=== PATIENT | female | born 1995 | race African-American/Black ===

== ENCOUNTER 2021-12-06 12:29 | Outpatient (CLI) | payer OTHER, MEDICAID, SELFPAY ==
--- NOTE | ~2021-12-06 | US_ITS ---
EXAMINATION: US OB <= 14 weeks fetus DATE: 12/06/2021 13:26 INDICATION: Encounter for other specified screening. Uncertain dates. TECHNIQUE: Real-time transabdominal pelvic ultrasound was performed. COMPARISON: None. FINDINGS: The uterus measures 14.6 x 6.3 x 8.2 cm. There is an intrauterine gestational sac. A yolk sac is iden tified. The crown rump length measures 5.4 cm, which correlates with an estimated gestational age of 12 weeks and 0 day(s) (+/-) 1 week(s) and 1 day(s). heart motion is identified measuring 154 beats per minute (bpm) by M-mode Doppler. The right ovary measures 4.7 x 1.1 x 1.6 cm. The left ovary measures 3.4 x 1.2 cm. There is no free fluid in the pelvis. IMPRESSION: 1. Single living intrauterine gestation with estimated date of delivery of 06/20/2022. Reviewed, dictated and finalized at location A. ETING RESEARCH INTERN IMPRESSION: 1. Single living intrauterine gestation with estimated date of delivery of 05/29.
== END 2021-12-06 12:30 | disposition home or self-care (01) ==
LOC: ANHIMG 12:32
PROVIDERS: Visit Provider Obstetrics & Gynecology
DX: Z36.89 Encounter for other specified antenatal screening (principal)
CPT/HCPCS: 76801

== ENCOUNTER 2022-04-21 08:58 | Outpatient (CLI) | payer OTHER, SELFPAY ==
[2022-04-21 10:19] LABS: Basophils Percent Auto 0.2 % (0.2-1.2); Eosinophils Absolute Auto 0.1 K/mm3 (0-0.3); Eosinophils Percent Auto 1.1 % (0-4.4); Hematocrit 29.8 % (37.0-47.0); Hemoglobin 9.6 g/dL (12.0-15.0); Immature Granulocyte Absolute 0.01 K/mm3 (0.00-0.031); Immature Granulocyte Percent A 0.2 % (0-0.5); Immature Platelet Fraction Pct 10.1 % (0.9-11.2); Lymphocytes Absolute Auto 1.34 K/mm3 (0.9-3.2); Lymphocytes Percent Auto 30.7 % (18.3-44.2); Mean Corpuscular HGB Conc 32.2 g/dl (32-36); Mean Corpuscular Hemoglobin 27.7 pg (26-34); Mean Corpuscular Volume 86.1 fl (80-100); Mean Platelet Volume 11.3 fl (7.4-10.4); Monocytes Absolute Auto 0.4 K/mm3 (0.1-0.6); Monocytes Percent Auto 9.4 % (2.6-8.5); Neutrophils Absolute Auto 2.6 K/mm3 (1.3-6.7); Neutrophils Percent Auto 58.4 % (45.5-73.1); Platelet Count Result 142 k/mm3 (150-375); Red Blood Count 3.46 M/mm3 (4.2-5.4); White Blood Count 4.4 K/mm3 (4.5-10.0)
[2022-04-21 10:28] LABS: Glucose 1 Hour PP 50gm Dose 98 mg/dL
== END 2022-04-21 08:59 | disposition home or self-care (01) ==
LOC: ANHLAB 09:00
PROVIDERS: Visit Provider Obstetrics & Gynecology
DX: Z34.90 Encounter for supervision of normal pregnancy, unspecified, unspecified trimester (principal)
CPT/HCPCS: 36415; 82947; 85025; 85055

== ENCOUNTER 2022-05-16 14:30 | Outpatient (CLI) | payer OTHER, SELFPAY ==
[2022-05-16 14:58] LABS: Basophils Percent Auto 0.2 % (0.2-1.2); Eosinophils Percent Auto 0.5 % (0-4.4); Hematocrit 31.2 % (37.0-47.0); Hemoglobin 10.1 g/dL (12.0-15.0); Immature Granulocyte Absolute 0.01 K/mm3 (0.00-0.031); Immature Granulocyte Percent A 0.2 % (0-0.5); Lymphocytes Absolute Auto 1.46 K/mm3 (0.9-3.2); Lymphocytes Percent Auto 35.3 % (18.3-44.2); Mean Corpuscular HGB Conc 32.4 g/dl (32-36); Mean Corpuscular Hemoglobin 27.7 pg (26-34); Mean Corpuscular Volume 85.5 fl (80-100); Mean Platelet Volume 12.1 fl (7.4-10.4); Monocytes Absolute Auto 0.3 K/mm3 (0.1-0.6); Neutrophils Absolute Auto 2.3 K/mm3 (1.3-6.7); Neutrophils Percent Auto 55.8 % (45.5-73.1); Platelet Count Result 120 k/mm3 (150-375); Red Blood Count 3.65 M/mm3 (4.2-5.4); Red Cell Distribution Width 13.2 % (11.5-14.5); White Blood Count 4.1 K/mm3 (4.5-10.0)
[2022-05-16 15:50] LABS: HIV 1/2 Ab P24 Ag Result Negative (Negative)
[2022-05-17 07:53] LABS: Rapid Plasma Reagin Non-Reactive (NonReactive)
== END 2022-05-16 14:31 | disposition home or self-care (01) ==
LOC: ANHLAB 14:32
PROVIDERS: Visit Provider Obstetrics & Gynecology
DX: Z34.91 Encounter for supervision of normal pregnancy, unspecified, first trimester (principal); Z3A.12 12 weeks gestation of pregnancy
CPT/HCPCS: 36415; 85025; 86592; 86703; 86850; G0432

== ENCOUNTER 2022-06-19 04:13 | Inpatient (IN) | payer OTHER, SELFPAY ==
[2022-06-19] VITALS (13 sets, daily range): BP systolic 120–134; BP diastolic 69–81; PULSE 60–77; RESP 16–20; TEMP 36.4–36.9; O2SAT 98–100; BMI 27.1
[2022-06-19 05:40] LABS: Basophils Percent Auto 0.2 % (0.2-1.2); Eosinophils Percent Auto 0.9 % (0-4.4); Hematocrit 35.9 % (37.0-47.0); Hemoglobin 11.9 g/dL (12.0-15.0); Immature Granulocyte Absolute 0.01 K/mm3 (0.00-0.031); Immature Granulocyte Percent A 0.2 % (0-0.5); Lymphocytes Absolute Auto 1.87 K/mm3 (0.9-3.2); Lymphocytes Percent Auto 40.4 % (18.3-44.2); Mean Corpuscular HGB Conc 33.1 g/dl (32-36); Mean Corpuscular Hemoglobin 28.3 pg (26-34); Mean Corpuscular Volume 85.5 fl (80-100); Mean Platelet Volume 12.7 fl (7.4-10.4); Monocytes Absolute Auto 0.5 K/mm3 (0.1-0.6); Monocytes Percent Auto 10.2 % (2.6-8.5); Neutrophils Absolute Auto 2.2 K/mm3 (1.3-6.7); Neutrophils Percent Auto 48.1 % (45.5-73.1); Platelet Count Result 107 k/mm3 (150-375); Red Cell Distribution Width 13.2 % (11.5-14.5); White Blood Count 4.6 K/mm3 (4.5-10.0)
--- NOTE | 2022-06-19 06:05 | P.PCNOB_ITS ---
OB - Delivery Note Procedure Delivery date: 06/19/22 Procedure: Spontaneous vaginal delivery Delivery monitor: External FHT Route of delivery: Laceration Description: None Specimen: No Quantitative Blood Loss (ml): 150 Anesthesia type: None Disposition: Floor Narrative: Patient admitted to Labor and delivery in active labor. IV access was obtained. She had spontaneous rupture of membranes with thick meconium noted. She soon progressed to complete. Peds available. She pushed approximately 3 times and delivered a female . Over an intact perineum. There was a loose nuchal cord manually reduced. nose and mouth was suctioned at the perineum. was vigorously crying upon delivery. She cord was doubly clamped and cut was placed on maternal abdomen and then handed to nursery staff and slip presser in attendance. Cord blood was obtained and cord gases. the placenta delivered spontaneously and intact. There were no lacerations. Patient tolerated procedure well. Bernice Baby Date of : 06/19/22 Time of : 05:09 Weeks of gestation at delivery: 40 Infant gender: Female Weight (pounds): 6 Weight (ounces): 8 presentation: vertex position: Right Occiput Anterior Placenta delivery description: Spontaneous Cord Vessel Description: 3 Vessels score one minute: 8 score five minutes: 9
--- NOTE | 2022-06-19 06:05 | PM.IMHP ---
H&P: HPI History of Present Illness Date/Time: 06/19/22 06:05 Chief Complaint: Contractions Narrative: Patient is a G 2 P1 at 40 weeks presented to L and D in active labor at 7 cm. PNC uncomplicated. Labs reviewed. GBS neg Review of Systems Review of Systems: All systems reviewed & are unremarkable except as noted in HPI and below Constitutional: Constitutional: Reports no additional constitutional complaints and Denies headache(s) Eyes: Eyes: Denies spots in vision ENT: Reports system reviewed and no additional complaints, except as documented and Denies headache(s) Cardiovascular: Cardiovascular: Denies chest pain and Denies dyspnea Respiratory: Respiratory: Denies dyspnea Gastrointestinal: Gastrointestinal: Reports no additional gastrointestinal complaints Genitourinary: Genitourinary: Reports amenorrhea Musculoskeletal: Musculoskeletal: Reports no additional musculoskeletal complaints Integumentary/Breasts: Skin/Breast: Denies breast mass and Denies rash Neurologic: Denies headache(s) Psychiatric: Psychiatric: Reports no additional psychiatric complaints [facility] Family History Family History Mother Hypertension Grandparent Family history of malignant neoplasm of breast, Onset Age: 53 Family history of malignant neoplasm of ovary, Onset Age: 53 Social History Social History Smoking status: Never smoker Second hand tobacco smoke exposure: No Alcohol intake: current Substance use: never Substance use type: marijuana Spiritual care concerns: No Meds Home Medications and Allergies Home Medications Medication Instructions Recorded Confirmed Type docosahexaenoic acid 200 mg mg PO 11/16/21 05/29/22 History capsule ( DHA) valacyclovir 500 mg tablet 500 mg PO BID #60 tabs 05/01/22 05/29/22 Rx (Valtrex) ferrous sulfate 325 mg (65 mg 325 mg PO BID 06/11/22 06/11/22 History iron) tablet Allergies Allergy/AdvReac Type Severity Reaction Status Date / Time No Known Allergies Allergy Verified 06/11/22 10:11 Vital Signs Vital Signs - 24 hr 06/19/22 05:26 06/19/22 05:30 06/19/22 05:46 Pulse Rate 60 67 71 Blood Pressure 130/70 134/81 122/77 06/19/22 06:00 Pulse Rate 77 Blood Pressure 123/74 Exam Const: General: no acute distress Eyes: General: appearance normal, both eyes and all related structures Resp: Effort & Inspection: normal respiratory effort Cardio: Rate: regular rate GI: Other: Gravid no fundal tenderness no right upper quadrant pain Skin: General skin exam: no rashes or lesions noted Neuro: Cognition (Neuro): normal cognition Extrem: General: normal to inspection Psych: Mental Status: mental status grossly normal H&P: Results Labs Labs: Short CBC 06/19/22 Range/Units 04:54 WBC 4.6 (4.5-10.0) K/mm3 Hgb 11.9 L (12.0-15.0) g/dL Hct 35.9 L (37.0-47.0) % Plt Count 107 L (150-375) k/mm3 Assessment and Plan Assessment and plan (1) Active labor: Status: Acute Assessment and Plan: Admit Expectant management. Anticipate vaginal delivery.
--- NOTE | 2022-06-19 06:42 | LDADM ---
This patient, Teena Fowler, was admitted to Labor/Delivery/Recovery 104 on 06/19/22 at 04:13. Plans for labor, pain management and were discussed with patient. Patient/family oriented to hospital policies and general routines including ID bracelet, bed and alarms, visiting hours, pain management, procedures, bathroom and other care routines, personal items, smoking policy, room service/diet and guest tray routines, security routines, and visiting hours. Patient/Family are encouraged to report perceived risks to care and to ask questions if they do not understand what they are told or what they should do. See OBIX for further documentation.
[2022-06-19] MEDS: WITCH HAZEL 40 PADS 1 PAD (08:30)
[2022-06-19] MEDS: DOCUSATE SODIUM 100 MG CAPSULE PO ×2 (09:48→16:57)
[2022-06-19] MEDS: IBUPROFEN 600 MG TABLET PO ×2 (09:48→19:20)
[2022-06-19] MEDS: MULTIVIT/MIN/PREN/FOL AC/IRON TABLET 1 TAB PO (09:48)
[2022-06-19 12:09] LABS: Rapid Plasma Reagin Non-Reactive (NonReactive)
--- NOTE | 2022-06-19 12:43 | PC.NURSE ---
0916 Introductions were made, then consulted with patient to assess needs related to . Mother led the conversation with her?plans to feed?her and the?experience so far. Resources provided for inpatient and outpatient services using a resource guide and mom/baby guide. Mother voiced understanding of information and will call if there is a request for assistance. Reported to primary RN.
[2022-06-19] MEDS: ACETAMINOPHEN 325 MG TABLET 650 MG PO (16:57)
[2022-06-20 00:24] VITALS: BP 119/78; PULSE 59; RESP 16; TEMP 36.7; O2SAT 99
[2022-06-20 04:50] VITALS: BP 117/66; PULSE 63; RESP 15; TEMP 37.1; O2SAT 100
[2022-06-20 05:25] LABS: Hematocrit 33.4 % (37.0-47.0)
[2022-06-20] MEDS: ACETAMINOPHEN 325 MG TABLET 650 MG PO (05:31)
--- NOTE | 2022-06-20 07:05 | PC.NURSE ---
Upon entering this patient's room I noticed she was sleeping with her in bed. I educated her that it is not safe for infant to sleep with her. Patient states understanding.
[2022-06-20 08:25] VITALS: BP 106/60; PULSE 58; RESP 18; TEMP 36.6; O2SAT 100
[2022-06-20] MEDS: DOCUSATE SODIUM 100 MG CAPSULE PO (09:28)
[2022-06-20] MEDS: MULTIVIT/MIN/PREN/FOL AC/IRON TABLET 1 TAB PO (09:28)
[2022-06-20] MEDS: IBUPROFEN 600 MG TABLET PO (09:28)
[2022-06-22 09:56] VITALS: BP 124/89; PULSE 91; RESP 16; TEMP 36.6; O2SAT 98
--- NOTE | 2022-07-17 11:16 | PM.OBDSVD ---
DS: Admitting Diagnosis Discharge Date 06/20/22 Admitting Diagnosis Active labor DS: Discharge Diagnosis Discharge Diagnosis (1) Delivery normal: Code(s): O80 - Encounter for full-term uncomplicated delivery Status: Acute OB - DS: Summary Hospital Course Hospital Course: Patient admitted in active labor. She had an uncomplicated vaginal delivery. She did well . She had adequate pain control and was ambulating well, tolerating regular diet. Baby doing well. Lochia was light. She was discharged to home on day 1. Discharge precautions discussed. OB Procedures : Ultrasound OB Procedures Intrapartum: Spontaneous Vag Delivery OB Procedures: : None Peripartum Data Infant Delivery Method: Natural Vaginal complications: none Status at Discharge Functional status at discharge: independent ambulation Time Spent with Patient Time attestation: Total time spent providing and/or coordinating discharge services: Exam Const: General: cooperative Orientation/consciousness: oriented to person, oriented to place and oriented to time HENMT: General nose exam: Normal external nose present Eyes: General: appearance normal, both eyes and all related structures Resp: Effort & Inspection: normal respiratory effort GI: Inspection: normal to inspection Other: fundus firm below umbilicus Skin: General skin exam: normal color Neuro: General: oriented to person, oriented to place and oriented to time Extrem: General: normal to inspection and no calf tenderness Psych: Appearance: grossly normal Mental Status: mental status grossly normal Discharge Plan Discharge Attending physician on discharge: Ricky Carreon Discharging Clinician: Ricky Carreon Anticipated Discharge Date/Time: 06/20/22 11:39 Patient Disposition: Home, Self-Care Activity: may shower and pelvic rest Diet: regular Discharge Instructions: Education: Mom and Baby Guide Given to: Mother Follow-Up: Call your delivering provider's office for an appointment to be seen in: 4 Weeks Mom and baby should come to the [facility] for the follow-up appointment. Appointment Date/Time: June 22, 2022 at 10:00 am What to expect at your follow-up visit: Blood Pressure Check Physical Assessment Call [phone] if you are unable to keep your appointment time. BREAST CARE: * Wear a snug supportive bra. * For engorgement discomfort: Breast Feeding: * Apply warm moist washcloths * Express milk as needed to relieve engorgement * Wear loose clothing * For sore nipples: * Identify correct latch-on * Apply warm moist washcloths before and after nursing * Air dry nipples after nursing * May apply Lansinoh cream to nipples PERINEAL CARE: * Until bleeding stops, use your michael bottle after urinating * Change your pad frequently throughout the day * You may take sitz baths several times a day (fill your bathtub with warm water and soak for 20 minutes.) Do NOT bathe in the water * No tub baths until seen by your physician - You may shower ACTIVITY: * Rest as much as possible. * Do not exercise or lift anything heavier than your baby (such as laundry or other children.) * Avoid stairs or driving as much as possible. * Do not put anything into the vagina. No douching, tampons, or sexual activity until seen by physician. NOTIFY PHYSICIAN IF YOU HAVE ANY QUESTIONS OR IF ANY OF THE FOLLOWING SYMPTOMS OCCUR: * If your episiotomy or incision becomes red, swollen, or more painful than what you have experienced in the hospital. * If your vaginal bleeding becomes foul smelling. * If your vaginal bleeding becomes more heavy than a period or if your bleeding changes from pink to bright red. However, you may pass an occasional walnut-sized clot once or twice for the first week . * If you experience a sharp, shooting pain
== END 2022-06-20 13:46 | disposition home or self-care (01) | DRG 560 ==
LOC: ANHLDR 04:30 → ANHOB2 07:57
PROVIDERS: Admitting Provider Obstetrics & Gynecology; Visit Provider Obstetrics & Gynecology
DX: O62.3 Precipitate labor (principal); O77.0 Labor and delivery complicated by meconium in amniotic fluid; O69.81X0 Labor and delivery complicated by cord around neck, without compression, not applicable or unspecified; Z3A.40 40 weeks gestation of pregnancy; Z37.0 Single live birth
CPT/HCPCS: 36415; 85014; 85018; 85025; 86592; 86850; 86900; 86901; A9270

== ENCOUNTER 2023-01-18 10:06 | Emergency (ER) | payer OTHER, SELFPAY ==
[2023-01-18 10:18] VITALS: BP 145/84; PULSE 90; RESP 20; TEMP 37.1; O2SAT 100
--- NOTE | 2023-01-18 12:19 | ED.URI ---
HPI - URI/Sore Throat General Chief Complaint: Upper Respiratory Infection Stated Complaint: Sore Throat Time Seen by Provider: 01/18/23 12:15 Source: patient, RN notes reviewed and old records reviewed Mode of arrival: ambulatory Limitations: no limitations History of Present Illness HPI Narrative: 28-year-old female who presents to [facility] with complaints of sore throat for the past 3 days with productive cough. Patient reports that she is concerned because she is traveling to see elderly family members this weekend. Patient reports that she has had positive exposure from c-worker for strep.Patient has not taken any OTC medications for her symptoms, denies any fevers, chills or sweats or any body aches.Patient has not had COVID or flu shot. MD elicited complaint: cough and sore throat Onset (ago): day(s) (3) Pain scale (0-10): 8 Treatments prior to arrival: none Related Data Allergies Allergy/AdvReac Type Severity Reaction Status Date / Time No Known Allergies Allergy Verified 01/18/23 10:45 Review of Systems Review of Systems: CONSTITUTIONAL: Denies malaise, chills, sweats, or fever. EYES: Denies visual changes, redness, or discharge. ENT: Reports scant rhinorrhea, congestion, sinus pain,no otalgia positive for sore throat. CARDIOVASCULAR: Denies chest pain, palpitations, or edema. RESPIRATORY: Reports productive cough.? Denies dyspnea. GASTROINTESTINAL: Denies abdominal pain, nausea, vomiting, diarrhea SKIN: Denies rash or itching. MUSCULOSKELETAL: Denies myalgia. NEUROLOGIC: Denies headache. All systems reviewed & are unremarkable except as noted in HPI and below PMFSH Past Medical History Medical History (Updated 01/20/23 @ 10:54 by Jillian Silva NP) Gestational hypertension HSV-1 (herpes simplex virus 1) infection UTI (urinary tract infection) Family History Family History Mother Hypertension Grandparent Family history of malignant neoplasm of breast, Onset Age: 53 Family history of malignant neoplasm of ovary, Onset Age: 53 Social History Social History Smoking status: Never smoker Second hand tobacco smoke exposure: No Alcohol intake: current Substance use: never Substance use type: marijuana Spiritual care concerns: No Comments At time of signature, agree with nursing past medical, surgical, social and family history. There is no relevant family history pertinent to the presenting complaint Exam Narrative: GENERAL: Well-appearing, well-nourished, and in no acute distress. HEAD: Normocephalic EYES: PERRLA, conjunctivae clear ENT: Nares clear, turbinates edematous and erythematous, scant clear discharge. Mucous membranes moist. TM pearly doherty with dull light reflex bilaterally; no tragal tenderness. Oropharynx erythematous without lesions. Tonsils red enlarged and without exudate, no drooling, no hoarseness, no trismus, uvula midline. NECK: Supple. No lymphadenopathy CHEST: Clear to auscultation, breath sounds equal. No wheezing, rhonchi, rales, or stridor. No respiratory distress, speaks in full sentences.productive cough, SAO2 100% on room air HEART: Regular rate and rhythm. No murmur heard. SKIN: Warm, dry, no rash. NEURO: Alert and oriented x3. PSYCH: Normal mood and affect Course Course Emergency Course: Patient is aware of diagnosis, understands and agrees to treatment plan.? Anticipatory guidance given.? Patient agrees to follow-up as directed and is aware of reasons to seek care at the emergency department. Portions of this record may have been created with voice recognition software Level of Care: Express Care Visit Vital Signs Vital signs: Vital Signs Temperature 37.1 C 01/18/23 10:18 Pulse Rate 90 01/18/23 10:18 Respiratory Rate 20 01/18/23 10:18 Blood Pressure 145/84 H 01/18/23 10:18 Pulse Oxim
== END 2023-01-18 12:40 | disposition home or self-care (01) ==
PROVIDERS: Emergency Provider Registered Nurse; PCP Family Medicine
DX: J02.9 Acute pharyngitis, unspecified (principal)
CPT/HCPCS: 87081; 87880; 99213; G0463

== ENCOUNTER 2023-04-04 03:54 | Emergency (ER) | payer OTHER, SELFPAY ==
--- NOTE | ~2023-04-04 | XR_ITS ---
Right Hand Technique: PA, oblique, and lateral views were obtained. Clinical History: Pain Findings: There is an oblique fracture of the proximal to mid shaft of the fifth metacarpal, mildly d isplaced. No other fracture or dislocation seen. Joint spaces are preserved. Soft tissues are unremar kable. Impression: Oblique, mildly displaced fracture of the proximal to midshaft of the fifth metacarpal. Reviewed, dictated and finalized at location M. Impression: Oblique, mildly displaced fracture of the proximal to midshaft of the fifth met acarpal.
[2023-04-04 03:56] VITALS: BP 113/80; PULSE 68; RESP 20; TEMP 37; O2SAT 99
--- NOTE | 2023-04-04 04:14 | ED.GENADULT ---
HPI - General Adult General Chief complaint: Extremity Injury, Upper Stated complaint: hand injury Time Seen by Provider: 04/04/23 04:12 History of Present Illness HPI narrative: 28-year-old female presenting to ED 6 days after a fall down the stairs. During the fall she had significant pain to her right hand. However she has been working daily since then. She came in today because it is still painful and she would like to make sure she has no fractures. No other serious injuries. Related Data Allergies Allergy/AdvReac Type Severity Reaction Status Date / Time No Known Allergies Allergy Verified 01/18/23 10:45 [facility] Past Medical History Medical History Gestational hypertension HSV-1 (herpes simplex virus 1) infection UTI (urinary tract infection) Family History Family History Mother Hypertension Grandparent Family history of malignant neoplasm of breast, Onset Age: 53 Family history of malignant neoplasm of ovary, Onset Age: 53 Social History Social History Smoking status: Never smoker Second hand tobacco smoke exposure: No Alcohol intake: current Substance use: never Substance use type: marijuana Spiritual care concerns: No Exam Narrative: APPEARANCE: No apparent distress. Head: atraumatic. EYES: EOMI, NOSE: Atraumatic NECK: Trachea midline RESPIRATORY: No increased rate of breathing CARDIOVASCULAR: RRR, ABDOMINAL: Non-distended MUSCULOSKELETAl: bruising over the palm of the right hand. Tenderness along the 5th metacarpal. 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 Cap refill less than 2 seconds. NEURO: Alert. Moving 4/4 extremities SKIN:: Warm, dry. Normal color PSYCHIATRIC: Normal affect Course Vital Signs Vital signs: Vital Signs Temperature 98.6 F 04/04/23 03:56 Pulse Rate 68 04/04/23 03:56 Respiratory Rate 20 04/04/23 03:56 Blood Pressure 113/80 04/04/23 03:56 Pulse Oximetry 99 04/04/23 03:56 Oxygen Delivery Room Air 04/04/23 03:56 Temperature 98.6 F 04/04/23 03:56 Pulse Rate 68 04/04/23 03:56 Respiratory Rate 20 04/04/23 03:56 Blood Pressure 113/80 04/04/23 03:56 Pulse Oximetry 99 04/04/23 03:56 Oxygen Delivery Room Air 04/04/23 03:56 Procedures Orthopedic Splinting/Casting Injury #1: Splinting/Casting Date: 04/04/23 Side: right Upper Extremity Injury Location: hand Upper Extremity Immobilizer: ulnar gutter Pre-Procedure Neuro Vascular Exam: normal Post-Procedure Neuro Vascular Exam: normal Medical Decision Making MDM Narrative Medical decision making narrative: -Presentation: 28-year-old female presenting with hand pain after fall 6 days ago. -DDX includes but is not limited to: Hand fracture, bruising -Co-morbidities complicating care: none -Social determinants of health: patient works in [employer] using her hands -External Chart Review: none -Hx from independent Sources: none -Discussion of Management/Consultants: Dr. Bermudez-hand -Independent interpretation of studies: x-ray showed a 5th metacarpal fracture. Minimally displaced. Dx tests considered but not ordered: None -Procedures: ulnar gutter splint -Interventions: Robaxin, Tylenol -Shared decision making / Disposition: patient be discharged with hand follow-up. -RX Vital Signs Vital Signs: Vital Signs Temperature 98.6 F 04/04/23 03:56 Pulse Rate 68 04/04/23 03:56 Respiratory Rate 20 04/04/23 03:56 Blood Pressure 113/80 04/04/23 03:56 Pulse Oximetry 99 04/04/23 03:56 Oxygen Delivery Room Air 04/04/23 03:56 Temperature 98.6 F 04/04/23 03:56 Pulse Rate 68 04/04/23 03:56 Respiratory Rate 20 04/04/23 03:56 Blood Pressure 113/80 04/04/23 03:5
[2023-04-04] MEDS: ACETAMINOPHEN 500 MG TABLET 1000 MG PO (04:25)
[2023-04-04] MEDS: methocarbamoL 750 MG TABLET 1500 MG PO (04:25)
== END 2023-04-04 06:47 | disposition home or self-care (01) ==
PROVIDERS: Emergency Provider Emergency Medicine
DX: S62.326A Displaced fracture of shaft of fifth metacarpal bone, right hand, initial encounter for closed fracture (principal); Z87.440 Personal history of urinary (tract) infections; W10.9XXA Fall (on) (from) unspecified stairs and steps, initial encounter
CPT/HCPCS: 29125; 73130; 99284; A4565; A9270

== ENCOUNTER 2023-05-13 14:08 | Outpatient (CLI) | payer OTHER, SELFPAY ==
--- NOTE | ~2023-05-13 | XR_ITS ---
EXAMINATION: XR hand RT min 3V DATE: 05/13/2023 14:24 INDICATION: Right fifth metacarpal fracture. TECHNIQUE: 3 views of right hand were obtained. COMPARISON: Right hand radiograph 04/04/2023 FINDINGS: There is an oblique fracture of diaphysis of fifth metacarpal. The distal fracture fragment demonstrates 2 mm radial displacement and 20 degrees palmar angulation. Fixation is seen with 3 wire s in the fourth and fifth metacarpals. Early callus formation is noted. Joint spaces are normal. IMPRESSION: 1. Healing oblique fracture of diaphysis of fifth metacarpal with wire fixation. Reviewed, dictated and finalized at location A. IMPRESSION: 1. Healing oblique fracture of diaphysis of fifth metacarpal with wire fixation .
== END 2023-05-13 14:09 | disposition home or self-care (01) ==
PROVIDERS: Visit Provider Plastic Surgery
DX: S62.326D Displaced fracture of shaft of fifth metacarpal bone, right hand, subsequent encounter for fracture with routine healing (principal); T14.90XD Injury, unspecified, subsequent encounter
CPT/HCPCS: 73130

== ENCOUNTER 2023-06-14 08:56 | Outpatient (CLI) | payer OTHER, SELFPAY ==
--- NOTE | ~2023-06-14 | XR_ITS ---
EXAMINATION: XR hand RT min 3V DATE: 06/14/2023 09:17 INDICATION: Right fifth metacarpal fracture. TECHNIQUE: 3 views of right hand were obtained. COMPARISON: Right hand radiographs 05/13/2023 FINDINGS: There is an oblique fracture of diaphysis of fifth metacarpal. The distal fracture fragment demonstrates 2 mm radial displacement and mild palmar angulation. There is increased callus formatio n. Fixation is seen with 3 wires through the fourth and fifth metacarpals. Joint spaces are normal. IMPRESSION: 1. Healing oblique fracture of diaphysis of fifth metacarpal with wire fixation. Reviewed, dictated and finalized at location A. IMPRESSION: 1. Healing oblique fracture of diaphysis of fifth metacarpal with wire fixation .
== END 2023-06-14 08:57 | disposition home or self-care (01) ==
PROVIDERS: Visit Provider Plastic Surgery
DX: S62.326D Displaced fracture of shaft of fifth metacarpal bone, right hand, subsequent encounter for fracture with routine healing (principal); X58.XXXD Exposure to other specified factors, subsequent encounter
CPT/HCPCS: 73130

== ENCOUNTER 2023-06-27 00:44 | Day surgery (SDC) | payer OTHER, SELFPAY ==
[2023-06-25 15:24] VITALS: BMI 20.6
--- NOTE | 2023-06-25 15:41 | SUR.PREOP ---
Report to the Outpatient Waiting Room, entrance under the green pavilion located off [facility], at time 1015 on date 06/27/2023. Planned Procedure Time: 1215. Time changes happen often and if your time is changed the preop area will call you the afternoon before. - You and your visitor will be asked to self-screen and do not enter if you have any COVID symptoms. - A mask is optional within the hospital at this time. Patients may have clear liquids (water, carbonated beverages, clear teas, apple juice) until 3 hours prior to surgery with a maximum of 20 ounces. - No food from midnight until time of surgery - Infants may have breast milk until 4 hours before surgery, formula 6 hours prior to surgery. - Children will be allowed to drink immediately following surgery. If applicable, please bring a bottle or sippy cup to assist with drinking. Juice, water, soda, and popsicles are readily available. For infants on formula, please bring formula the day of surgery. Pacifiers are allowed. Take the following medications with a SIP of water the morning of surgery: N/A DO NOT STOP ANY OF YOUR OTHER PRESCRIPTION MEDICATIONS PRIOR TO SURGERY ?EXCEPT THE FOLLOWING Medications to discontinue per physician Vitamins- 3 days; no more after today Date to take last dose 06/25/2023 Please no make-up, nail maltese, hairspray, perfume, deodorant, or body powder the day of surgery. No jewelry (including any body piercings) or valuables the day of surgery, leave them at home. Please take a shower or bath the night before, or the morning of, surgery with an antibacterial soap. Wear comfortable, loose fitting clothing. Children are encouraged to wear pajamas. - Jewelry must be removed prior to entering the operating room. Rings and piercings that are not removed may be cut off. - The hospital will not accept responsibility for valuables. - Please leave all valuables, including medications, at home the day of surgery. If you are going home after surgery, a licensed route sales driver must drive you home. - NO public transportation without another adult if you receive anesthesia. - We recommend that an adult stay with you for 24 hours following discharge. - We also recommend that you do not drive, make important decision, drink alcoholic beverages, or take any drugs that were not prescribed by your health care provider for at least 24 hours after your discharge time. For Pediatric surgeries, we recommend two adults accompany the child home. Follow any additional instructions given to you from your surgeon. If you or anyone in your household have experienced Covid symptoms in the past week, please notify your surgeon or the nurse liaison at the phone number below for possible testing. Telephone instructions given to patient and asked if any additional questions and then verbalized understanding. Patient advised to call surgeon office or pre surgery nurse liaison [phone] if any additional questions.
[2023-06-27] VITALS (7 sets, daily range): BP systolic 101–135; BP diastolic 49–71; PULSE 65–89; RESP 14–18; TEMP 36.3; O2SAT 96–100
--- NOTE | ~2023-06-27 | XR_ITS ---
EXAMINATION: XR surgery orthopedic DATE: 06/27/2023 12:58 INDICATION: Removal right hand instrumentation. TECHNIQUE: 2 fluoroscopic images of the right hand were obtained during procedure performed by Dr. Hardy. Radiologist was not present for the imaging or procedure. The amount of fluoroscopy time used du ring this procedure was 0.9 minutes. COMPARISON: 06/11/2023 FINDINGS: 3 fluoroscopic images were obtained of the right hand excluding the digits. Again seen is an oblique extra-articular fracture proximal metaphyseal region of the right fifth metacarpal which appears to b e healing with callus formation along the ulnar side of the fracture. The fracture is fixed with 3 pi ns on the initial image which also demonstrates the needle tip projecting over the base of the fifth metacarpal likely for marking. Subsequent image demonstrates removal of the needle as well as each of the 3 fixation pins with no residual radiopaque foreign bodies. Lucent pin tracks are seen across th e proximal diaphysis of the fourth and fifth metacarpals. The fractures healing with approximately on e cortical width ulnar displacement. No other fractures identified. Joint spaces are unremarkable. IMPRESSION: 1. Fluoroscopy utilized for removal of 3 fixation pins from a healing extra-articular fracture at the proximal aspect right fifth metacarpal. See procedure note for further detail. Reviewed, dictated and finalized at location A. IMPRESSION: 1. Fluoroscopy utilized for removal of 3 fixation pins from a healing extra-art icular fracture at the proximal aspect right fifth metacarpal. See procedure no te for further detail.
--- NOTE | 2023-06-27 07:18 | WPDHPUPDATE1 ---
History and Physical Update Update Date/Time: 06/27/23 07:18 History and Physical has been reviewed, including an updated exam of the patient. There are NO changes in the patient's condition. Risks, benefits, and alternatives have been discussed and questions answered. Patient agrees to proceed with procedure.
--- NOTE | 2023-06-27 09:11 | WPDANESEPPF ---
Anes - Initial Pre Proc Eval Procedure: Operation Date: 06/27/23 12:15 Proposed Procedures p Removal of Fixation Hardware Right Hand - Bo Bermudez MD Date/Time: 06/27/23 09:11 Surgeon: Bo Bermudez MD Pre Op Diagnosis: hx of orif right 5th metacarpal Patient Data Age: 28 Gender: F Height: 1.63 m Weight: 54.5 kg Allergies Allergy/AdvReac Type Severity Reaction Status Date / Time No Known Allergies Allergy Verified 06/27/23 10:54 Home Medications Medication Instructions Recorded Confirmed Type valacyclovir 500 mg tablet 500 mg PO BID #60 tabs 08/27/22 06/25/23 Rx (Valtrex) ibuprofen 800 mg tablet 800 mg PO TID PRN Pain 04/08/23 06/25/23 History lactobacillus combination no.8 3 3 cell PO DAILY 04/08/23 06/25/23 History billion cell capsule multivitamin 1 tablet PO DAILY 04/08/23 06/25/23 History Patient hx anesthesia problems: none Family hx anesthesia problems: none Results Review: All pre-operative results and documents have been reviewed as part of the pre-operative evaluation. [facility] Past Medical History Medical History Gestational hypertension HSV-1 (herpes simplex virus 1) infection UTI (urinary tract infection) Family History Family History Mother Hypertension Grandparent Family history of malignant neoplasm of breast, Onset Age: 53 Family history of malignant neoplasm of ovary, Onset Age: 53 Social History Social History Smoking status: Never smoker Second hand tobacco smoke exposure: No Alcohol intake: former Substance use: current Substance use type: marijuana Other substance usage details: marijuana socially Last use: 06/22/2023 Living arrangements: with family Spiritual care concerns: No Anes - Eval Final PreProcedure Day of Procedure 06/27/23 09:11 Patient weight: normal Heart: regular rate and rhythm Lungs: clear to auscultation and normal air movement Airway: Mallampati scale class II Neurological: alert and oriented Last oral intake: >/= 8 hours ASA classification: II Emergent: no Anesthetic plan: proceed Anesthesia type and monitoring: general GIVS and standard monitoring Results Review: All pre-operative results and documents have been reviewed as part of the pre-operative evaluation. Informed Consent: The patient's anesthetic plan and its attendant risks and benefits were discussed with the patient/family/POA. Questions were solicited and answers provided to the satisfaction of the patient/family/POA.
[2023-06-27] MEDS: LACTATED RINGERS 1,000 ML 30 ML IV CONT (10:45)
--- NOTE | 2023-06-27 13:35 | P.OP_ITS ---
Procedure Note - Detailed Date of Procedure 06/27/23 Pre-op Diagnosis hx of orif right 5th metacarpal Post-op Diagnosis Same Procedure Performed Planned removal of 3 C wires from the right hand Surgeon Bo Bermudez MD Assurance Specialist Sav Anesthesia MAC Indications Healed right 5th metacarpal fracture Description of Procedure The prior operative site on the right hand was marked with base consent in the holding area. She was taken to the operating room where she was placed supine on the operating table. She was given IV sedation. The right extremity was prepped and draped in usual fashion. A time-out was held and confirmed. The C- arm was used to identify the site of the buried pins in the ulnar hand over the 5th metacarpal region was anesthetized with 1% lidocaine with epinephrine. The extremity was exsanguinated and the tourniquet inflated to 250 mmHg.. The incision was made as marked. A hypodermic needle was used to confirm the location of the C wires. The prior incision was reopened. Blunt and sharp dissection was required to identify the bent heads of the pins along the ulnar margin of the 5th metacarpal. The pin was removed without difficulty. The 2 extensor tendons in this immediate region were freed from surrounding scar with scissors. The tourniquet was released and the wound was closed with intradermal 4-0 Monocryl suture. A soft bandage was applied and she was discharged from the operating room stable condition she is discharged with a prescription for hydrocodone 6. Estimated Blood Loss 2 Tourniquet Time 26 Drains No Packing No Pathology None sent Complications No immediate complications Condition Stable Disposition Same day
== END 2023-06-27 14:30 | disposition home or self-care (01) ==
PROVIDERS: Visit Provider Plastic Surgery
PROC: (CPT 20694; principal; 2023-06-27 12:15)
DX: Z47.2 Encounter for removal of internal fixation device (principal); S62.396D Other fracture of fifth metacarpal bone, right hand, subsequent encounter for fracture with routine healing; W10.9XXD Fall (on) (from) unspecified stairs and steps, subsequent encounter; F12.90 Cannabis use, unspecified, uncomplicated
CPT/HCPCS: 20680; 99199; J1885; J2250; J2704; J3010; J7120

== ENCOUNTER 2023-07-31 19:02 | Emergency (ER) | payer OTHER, SELFPAY ==
[2023-07-31 19:05] VITALS: BP 115/63; PULSE 103; RESP 21; TEMP 37.1; O2SAT 100
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
[2023-08-01 00:46] LABS: Basophils Percent Auto 0.3 % (0.2-1.2); Hematocrit 35.3 % (37.0-47.0); Hemoglobin 11.8 g/dL (12.0-15.0); Immature Granulocyte Absolute 0.02 K/mm3 (0.00-0.031); Immature Granulocyte Percent A 0.5 % (0-0.5); Immature Platelet Fraction Pct 6.3 % (0.9-11.2); Lymphocytes Absolute Auto 0.27 K/mm3 (0.9-3.2); Mean Corpuscular HGB Conc 33.4 g/dl (32-36); Mean Corpuscular Hemoglobin 27.6 pg (26-34); Mean Corpuscular Volume 82.5 fl (80-100); Mean Platelet Volume 10.3 fl (7.4-10.4); Monocytes Absolute Auto 0.4 K/mm3 (0.1-0.6); Monocytes Percent Auto 10.9 % (2.6-8.5); Neutrophils Absolute Auto 3.2 K/mm3 (1.3-6.7); Neutrophils Percent Auto 81.3 % (45.5-73.1); Platelet Count Result 142 k/mm3 (150-375); Red Blood Count 4.28 M/mm3 (4.2-5.4); Red Cell Distribution Width 11.9 % (11.5-14.5); White Blood Count 3.9 K/mm3 (4.5-10.0)
[2023-08-01 00:53] LABS: Alanine Aminotransferase 18 U/L (6-35); Albumin Level 4.4 g/dL (3.5-5.1); Alkaline Phosphatase 60 U/L (38-126); Anion Gap 10 mmol/L (8-16); Aspartate Amino Transferase 24 U/L (14-36); Bilirubin,Total 0.9 mg/dL (0.2-1.3); Blood Urea Nitrogen 7 mg/dL (7-17); Calcium 8.9 mg/dL (8.4-10.2); Carbon Dioxide 18 mmol/L (22-30); Chloride 105 mmol/L (98-107); Creatine Kinase 96 U/L (30-135); Estimated CRCL calculation 97 ml/min; Estimated Glomerular Filt Rate > 60; Glucose 91 mg/dL (65-110); Potassium 3.4 mmol/L (3.4-5.0); Sodium 133 mmol/L (137-145)
[2023-08-01 01:34] LABS: Beta HCG Quantitative 105.27 mIU/ML
[2023-08-01] MEDS: ACETAMINOPHEN 500 MG TABLET 1000 MG PO (02:22)
[2023-08-01] MEDS: ONDANSETRON HCL ODT 4 MG TABLET PO (02:23)
[2023-08-01 02:58] LABS: Magnesium 1.5 mg/dL (1.6-2.3)
[2023-08-01 03:29] LABS: Influenza A QL RT-PCR Negative (Negative); Influenza B QL RT-PCR Negative (Negative); SARS-CoV-2 RNA PCR Positive (Negative)
[2023-08-01] MEDS: MAGNESIUM CHLORIDE 64 MG TABLET PO (04:07)
== END 2023-08-01 04:07 | disposition home or self-care (01) ==
PROVIDERS: Emergency Provider Physician Assistant
DX: O9A.211 Injury, poisoning and certain other consequences of external causes complicating pregnancy, first trimester (principal); S86.902A Unspecified injury of unspecified muscle(s) and tendon(s) at lower leg level, left leg, initial encounter; S86.901A Unspecified injury of unspecified muscle(s) and tendon(s) at lower leg level, right leg, initial encounter; O98.511 Other viral diseases complicating pregnancy, first trimester; U07.1 COVID-19; O99.281 Endocrine, nutritional and metabolic diseases complicating pregnancy, first trimester; E83.42 Hypomagnesemia; Z87.440 Personal history of urinary (tract) infections; V40.6XXA Car passenger injured in collision with pedestrian or animal in traffic accident, initial encounter; Z3A.00 Weeks of gestation of pregnancy not specified
CPT/HCPCS: 36415; 80053; 81025; 82550; 83735; 84702; 85025; 85055; 87636; 99283; A9270

== ENCOUNTER 2023-09-17 13:32 | Outpatient (CLI) | payer OTHER, SELFPAY ==
--- NOTE | ~2023-09-17 | US_ITS ---
EXAMINATION: US OB <= 14 weeks fetus DATE: 09/17/2023 15:08 INDICATION: First trimester dating TECHNIQUE: Real-time pelvic transabdominal and transvaginal ultrasound was performed. COMPARISON: None. FINDINGS: The uterus measures 13.8 x 8.7 x 12.3 cm. There is an intrauterine gestational sac. The flavio centa is posterior. heart motion is identified measuring 139 beats per minute (bpm) by M-mode D oppler. The crown rump length measures 4.2 cm, which correlates with an estimated gestational a ge of 11 weeks and 1 day(s) (+/-) 7 day(s). The ovaries are not well visualized. No adnexal abnormality is identified. There is no free fluid in the pelvis. IMPRESSION: 1. Live intrauterine with an estimated gestational age of 11 weeks and 1 day(s) (+/-) 7 day (s) and an estimated delivery date of 04/06/2024. Reviewed, dictated and finalized at location [facility] IMPRESSION: 1. Live intrauterine with an estimated gestational age of 11 weeks an d 1 day(s) (+/-) 7 day(s) and an estimated delivery date of 04/06/2024.
== END 2023-09-17 13:33 | disposition home or self-care (01) ==
PROVIDERS: PCP Registered Nurse; Visit Provider Registered Nurse
DX: O36.80X0 Pregnancy with inconclusive fetal viability, not applicable or unspecified (principal); Z3A.11 11 weeks gestation of pregnancy
CPT/HCPCS: 76801

== ENCOUNTER 2023-10-02 14:23 | Outpatient (CLI) | payer OTHER, SELFPAY ==
[2023-10-02 15:18] LABS: Appearance Urine Clear (Clear); Bilirubin Urine Negative (Negative); Blood Urine Negative (Negative); Color Urine Yellow (Yellow); Glucose Urine UA Negative (Negative); Hematocrit 32.6 % (37.0-47.0); Hemoglobin 10.6 g/dL (12.0-15.0); Ketones Urine Negative (Negative); Leukocyte Esterase Ur Negative LEU/UL (NEGATIVE); Mean Corpuscular HGB Conc 32.5 g/dl (32-36); Mean Corpuscular Hemoglobin 27.5 pg (26-34); Mean Corpuscular Volume 84.7 fl (80-100); Mean Platelet Volume 10.2 fl (7.4-10.4); Nitrate Urine Negative (Negative); Platelet Count Result 180 k/mm3 (150-375); Protein Urine Negative (Negative); Red Blood Count 3.85 M/mm3 (4.2-5.4); Red Cell Distribution Width 13.4 % (11.5-14.5); Specific Grav Ur 1.023 (1.001-1.035); White Blood Count 5.1 K/mm3 (4.5-10.0)
[2023-10-02 15:31] LABS: Add Urine Microscopic? NO
[2023-10-02 16:13] LABS: HIV 1/2 Ab P24 Ag Result Negative (Negative)
[2023-10-02 16:51] LABS: Hepatitis B Surface Antigen Negative (Negative); Rubella IgG Antibody 57.1 IU/ML
[2023-10-02 17:06] LABS: Hepatitis C Virus Antibody Negative (Negative)
[2023-10-02 17:18] LABS: Rapid Plasma Reagin Non-Reactive (NonReactive)
[2023-10-07 19:56] LABS: Hematocrit 31.9 % (35.0-45.0); Hemoglobin 10.7 g/dL (11.7-15.5); MCH 27.9 pg (27.0-33.0); MCV 83.3 fL (80.0-100.0); RDW 13.3 % (11.0-15.0); Red Blood Cell Count 3.83 Mill/uL (3.80-5.10)
== END 2023-10-02 14:24 | disposition home or self-care (01) ==
LOC: ANHLAB 14:24
PROVIDERS: PCP Registered Nurse; Visit Provider Obstetrics & Gynecology
DX: Z34.92 Encounter for supervision of normal pregnancy, unspecified, second trimester (principal); Z3A.00 Weeks of gestation of pregnancy not specified
CPT/HCPCS: 36415; 81003; 83021; 84443; 85027; 86592; 86703; 86762; 86787; 86803; 86850; 86900; 86901; 87086; 87340; G0432

== ENCOUNTER 2023-10-30 19:02 | Emergency (ER) | payer OTHER, SELFPAY ==
[2023-10-30 19:21] VITALS: BP 124/71; PULSE 91; RESP 16; TEMP 36.8; O2SAT 97
--- NOTE | 2023-10-30 19:37 | ED.GENADULT ---
HPI - General Adult General Chief complaint: Upper Respiratory Infection Stated complaint: Cough/Runny Nose/Sore Throat/Vomiting Source: patient, RN notes reviewed and old records reviewed Mode of arrival: ambulatory Limitations: no limitations History of Present Illness HPI narrative: 28-year-old patient presents to [facility] with complaint of cough, congestion, myalgia, fatigue this started 3 days ago. Patient is 16 weeks patient not taking anything for symptoms. MD complaint: Cough, congestion Onset (ago): day(s) (3) Related Data Home Medications Medication Instructions Recorded Confirmed vits no.126-ferrous fum 1 tablet PO DAILY 08/29/23 10/30/23 28 mg iron-folic acid 800 mcg tablet (Classic ) Allergies Allergy/AdvReac Type Severity Reaction Status Date / Time No Known Allergies Allergy Verified 10/30/23 19:42 Review of Systems Constitutional: Constitutional: Reports no additional constitutional complaints, Reports body ache(s), Denies chills, Reports fatigue, Denies fever(s) and Denies headache(s) Eyes: Eyes: Reports no additional eye complaints and Denies blurry vision ENT: Reports system reviewed and no additional complaints, except as documented, Denies vertigo, Denies dizziness, Denies ear discharge, Denies otalgia, Denies facial pain, Denies headache(s), Reports nasal congestion, Denies nasal discharge, Denies sinus pain, Reports sinus pressure and Reports sore throat Cardiovascular: Cardiovascular: Reports no additional cardiovascular complaints, Denies chest pain, Denies chest pain at rest, Denies rapid heart rate and Denies dyspnea Respiratory: Respiratory: Reports no additional respiratory complaints, Reports chest congestion, Reports cough, Denies pain on inspiration, Denies pain with cough and Denies dyspnea Gastrointestinal: Gastrointestinal: Denies abdominal pain, Denies diarrhea, Denies nausea and Denies vomiting Integumentary/Breasts: Skin/Breast: Denies rash Neurologic: Reports system reviewed and no additional complaints, except as documented, Denies vertigo, Denies dizziness and Denies headache(s) Endocrine: Endocrine: Denies fatigue PMF Past Medical History Medical History Gestational hypertension HSV-1 (herpes simplex virus 1) infection UTI (urinary tract infection) Surgical History Surgical History H/O hand surgery Family History Family History Mother Hypertension Grandparent Family history of malignant neoplasm of breast, Onset Age: 53 Family history of malignant neoplasm of ovary, Onset Age: 53 Social History Social History Smoking status: Never smoker Second hand tobacco smoke exposure: No Alcohol intake: former Substance use: current Substance use type: marijuana Other substance usage details: marijuana socially Last use: 06/22/2023 Lack of Transportation: No Lack of Food: Never True Current Housing: I Have Housing Concerned About Future Housing: No Difficulty Paying Gas/Electric Bills: No Difficulty Paying for Meds: No Currently Unemployed: No Education: Trade/Vocational Certificate Difficulty w/ Childcare or Family Care: No Living arrangements: with family Spiritual care concerns: No Comments At the time of my signature, I reviewed and agree with the nursing past medical, surgical, social, and family history. There is no relevant family history pertinent to the patient complaint. Exam Const: General: cooperative, healthy appearing, no acute distress and well nourished Nutritional Appearance: well nourished Orientation/consciousness: patient oriented x3 Limitations: no limitations HENMT: Head: normal to inspection and normocephalic Ears: external ears
== END 2023-10-30 20:00 | disposition home or self-care (01) ==
PROVIDERS: Emergency Provider Registered Nurse
DX: B34.9 Viral infection, unspecified (principal); Z20.822 Contact with and (suspected) exposure to COVID-19
CPT/HCPCS: 87081; 87426; 87804; 87880; 99213; C9803; G0463

== ENCOUNTER 2024-01-16 12:28 | Outpatient (CLI) | payer OTHER, SELFPAY ==
[2024-01-16 14:05] LABS: Hematocrit 31.4 % (37.0-47.0); Hemoglobin 10.3 g/dL (12.0-15.0); Mean Corpuscular HGB Conc 32.8 g/dl (32-36); Mean Corpuscular Hemoglobin 27.8 pg (26-34); Mean Corpuscular Volume 84.9 fl (80-100); Mean Platelet Volume 11.6 fl (7.4-10.4); Platelet Count Result 145 k/mm3 (150-375); Red Cell Distribution Width 13.9 % (11.5-14.5); White Blood Count 5.1 K/mm3 (4.5-10.0)
[2024-01-16 14:17] LABS: Glucose 1 Hour PP 50gm Dose 99 mg/dL
== END 2024-01-16 12:29 | disposition home or self-care (01) ==
LOC: ANHLAB 12:29
PROVIDERS: Visit Provider Obstetrics & Gynecology
DX: Z34.82 Encounter for supervision of other normal pregnancy, second trimester (principal); Z3A.00 Weeks of gestation of pregnancy not specified
CPT/HCPCS: 36415; 82947; 85027

== ENCOUNTER 2024-03-06 11:03 | Outpatient (CLI) | payer OTHER, SELFPAY ==
[2024-03-06 11:42] LABS: Hematocrit 32.6 % (37.0-47.0); Hemoglobin 10.6 g/dL (12.0-15.0); Mean Corpuscular HGB Conc 32.5 g/dl (32-36); Mean Platelet Volume 12.5 fl (7.4-10.4); Platelet Count Result 109 k/mm3 (150-375); Red Blood Count 3.79 M/mm3 (4.2-5.4); Red Cell Distribution Width 13.5 % (11.5-14.5); White Blood Count 4.6 K/mm3 (4.5-10.0)
[2024-03-06 12:33] LABS: HIV 1/2 Ab P24 Ag Result Negative (Negative)
[2024-03-07 22:32] LABS: Rapid Plasma Reagin Non-Reactive (NonReactive)
== END 2024-03-06 11:04 | disposition home or self-care (01) ==
LOC: ANHLAB 11:04
PROVIDERS: Visit Provider Obstetrics & Gynecology
DX: Z34.90 Encounter for supervision of normal pregnancy, unspecified, unspecified trimester (principal)
CPT/HCPCS: 36415; 85027; 86592; 86703; G0432

== ENCOUNTER 2024-03-19 11:22 | Outpatient (CLI) | payer BC, OTHER, SELFPAY ==
--- NOTE | ~2024-03-19 | US_ITS ---
EXAMINATION: US OB follow up w BPP DATE: 03/19/2024 13:18 INDICATION: Low heart rate. Third trimester. TECHNIQUE: Real-time pelvic ultrasound was performed. COMPARISON: Ultrasound 09/17/2023 FINDINGS: There is a single living fetus in vertex presentation. The placenta is posterior. heart rate i s 115 beats per minute (bpm). Biophysical profile performed by the technologist: breathing (30 sec sustained breathing in 30 minutes): 2 out of 2 movement (3 gross body movements in 30 minutes): 2 out of 2 tone (one episode of liyrhlp-fygeepetn-qchqhrj limb movement): 2 out of 2 Amniotic fluid pocket (2 cm): 2 out of 2 Total score: 8 out of 8 The following biometric data were obtained: Biparietal diameter (BPD): 9.0 cm; head circumference (HC): 32.2 cm; abdominal circumference (AC): 32 .9 cm; femur length (FL): 7.2 cm. These measurements are concordant. Estimated weight is 3001 g +/- 450 g, which correlates with the 50th percentile when 04/10/24 is used as estimated date of delivery. As single measurements, these parameters are each equal to the following estimated gestational ages: BPD: 36 weeks 3 days. HC: 36 weeks 3 days. AC: 36 weeks 6 days. FL: 36 weeks 4 days. estimated gestational age based solely on measurements from this exam is 36 weeks 4 days +/- 2 weeks 4 days. IMPRESSION: 1. Single living fetus in vertex presentation. 2. Biophysical profile 8 out of 8. 3. Estimated weight is 3001 g +/- 450 g, which correlates with the 50th percentile when 4 is used as estimated date of delivery. Note that the estimated date of delivery based on the ultras ound from 09/17/2023 would be 04/06/2024. Reviewed, dictated and finalized at location A. IMPRESSION: 1. Single living fetus in vertex presentation. 2. Biophysical profile 8 out of 8. 3. Estimated weight is 3001 g +/- 450 g, which correlates with the 50th percentile when 04/10/24 is used as estimated date of delivery. Note that the es timated date of delivery based on the ultrasound from 09/17/2023 would be 2023.
[2024-03-19 12:07] LABS: Appearance Urine Clear (Clear); Basophils Percent Auto 0.3 % (0.2-1.2); Bilirubin Urine Negative (Negative); Blood Urine Negative (Negative); Color Urine Yellow (Yellow); Eosinophils Absolute Auto 0.1 K/mm3 (0-0.3); Eosinophils Percent Auto 2.2 % (0-4.4); Glucose Urine UA Negative (Negative); Hematocrit 32.7 % (37.0-47.0); Hemoglobin 10.8 g/dL (12.0-15.0); Immature Granulocyte Absolute 0.01 K/mm3 (0.00-0.031); Immature Granulocyte Percent A 0.3 % (0-0.5); Ketones Urine Negative (Negative); Leukocyte Esterase Ur Negative LEU/UL (Negative); Lymphocytes Absolute Auto 1.53 K/mm3 (0.9-3.2); Mean Corpuscular Volume 84.7 fl (80-100); Mean Platelet Volume 12.7 fl (7.4-10.4); Monocytes Absolute Auto 0.5 K/mm3 (0.1-0.6); Monocytes Percent Auto 13.5 % (2.6-8.5); Neutrophils Absolute Auto 1.5 K/mm3 (1.3-6.7); Neutrophils Percent Auto 41.7 % (45.5-73.1); Nitrate Urine Negative (Negative); Platelet Count Result 106 k/mm3 (150-375); Protein Urine Negative (Negative); Red Blood Count 3.86 M/mm3 (4.2-5.4); Specific Grav Ur 1.018 (1.001-1.035); White Blood Count 3.6 K/mm3 (4.5-10.0)
[2024-03-19 12:15] VITALS: BP 127/87; PULSE 76
[2024-03-19 12:15] LABS: Add Urine Microscopic? NO
[2024-03-19 12:20] LABS: Alanine Aminotransferase 10 U/L (6-35); Albumin Level 3.5 g/dL (3.5-5.1); Alkaline Phosphatase 120 U/L (38-126); Anion Gap 7 mmol/L (4-12); Aspartate Amino Transferase 22 U/L (14-36); Bilirubin,Total 0.4 mg/dL (0.2-1.3); Blood Urea Nitrogen 10 mg/dL (7-17); Calcium 8.4 mg/dL (8.4-10.2); Carbon Dioxide 19 mmol/L (22-30); Chloride 109 mmol/L (98-107); Estimated Glomerular Filt Rate > 60; Glucose 71 mg/dL (65-110); Potassium 3.7 mmol/L (3.4-5.0); Sodium 135 mmol/L (137-145); Uric Acid 4.8 mg/dL (2.5-7.5)
[2024-03-19 12:30] VITALS: BP 131/83; PULSE 87
[2024-03-19 12:31] LABS: Creatinine Urine 111.6 mg/dL
[2024-03-19 12:41] LABS: Total Protein Urine Random < 5 mg/dL
[2024-03-19 12:42] LABS: Ur Ttl Prot Creatinine Ratio < 0.04 mg/mg (0-0.20)
[2024-03-19 12:56] VITALS: BP 127/87; PULSE 85
[2024-03-19 12:56] LABS: Partial Thromboplastin Time 28.1 Seconds (22.3-36.8); Prothrombin Time 13.5 Seconds (11.1-14.7)
[2024-03-19 12:59] VITALS: BP 131/83
--- NOTE | 2024-03-19 13:13 | PC.NURSE ---
Dr. Carreon notified of lab results, NST and ultrasound. Okay to discharge.
== END 2024-03-19 13:20 | disposition home or self-care (01) ==
LOC: ANHOBOP 11:30 → ANHOBPP 11:31
PROVIDERS: Visit Provider Obstetrics & Gynecology
DX: O13.9 Gestational [pregnancy-induced] hypertension without significant proteinuria, unspecified trimester (principal); Z3A.36 36 weeks gestation of pregnancy
CPT/HCPCS: 36415; 59025; 76816; 76819; 80053; 81003; 82570; 84156; 84550; 85025; 85055; 85610; 85730; 99199

== ENCOUNTER 2024-03-25 10:55 | Outpatient (CLI) | payer BC, OTHER, SELFPAY ==
[2024-03-25 11:56] LABS: Hematocrit 34.2 % (37.0-47.0); Immature Platelet Fraction Pct 18.9 % (0.9-11.2); Mean Corpuscular HGB Conc 32.2 g/dl (32-36); Mean Corpuscular Hemoglobin 27.6 pg (26-34); Mean Corpuscular Volume 85.9 fl (80-100); Mean Platelet Volume 12.7 fl (7.4-10.4); Platelet Count Result 107 k/mm3 (150-375); Red Blood Count 3.98 M/mm3 (4.2-5.4); Red Cell Distribution Width 13.2 % (11.5-14.5); White Blood Count 5.5 K/mm3 (4.5-10.0)
== END 2024-03-25 10:56 | disposition home or self-care (01) ==
LOC: ANHLAB 10:57
PROVIDERS: Visit Provider Nurse Practitioner Family
DX: Z34.90 Encounter for supervision of normal pregnancy, unspecified, unspecified trimester (principal); D69.6 Thrombocytopenia, unspecified
CPT/HCPCS: 36415; 85027; 85055

== ENCOUNTER 2024-04-09 11:19 | Outpatient (RCR) | payer BC, SELFPAY ==
--- NOTE | ~2024-04-09 | US_ITS ---
EXAMINATION: US OB limited w BPP DATE: 04/09/2024 13:51 CDT INDICATION: Variable decelerations TECHNIQUE: Real-time transabdominal obstetric ultrasound. FINDINGS: No prior studies for comparison. There is a single living fetus in vertex presentation. The placenta is posterior without placenta pr evia. cardiac activity and movement is noted with a heart rate of 121 beats per minute. Biophysical profile: breathin of 2 movement: 2 of 2 tone: 2 of 2 Amniotic flud pocket: 2 of 2 Total score: 8 of 8 IMPRESSION: 1. Single living intrauterine in vertex presentation. 2: Total biophysical profile score of 8/8. Reviewed, dictated and finalized at location B.
[2024-04-09 11:57] LABS: Mean Platelet Volume 12.8 fl (7.4-10.4); Platelet Count Result 109 k/mm3 (150-375)
[2024-04-09 13:43] VITALS: BP 134/87; PULSE 75
== END 2024-04-13 08:21 | disposition home or self-care (01) ==
LOC: ANHOBOP 11:19
PROVIDERS: Visit Provider Obstetrics & Gynecology
DX: O36.8330 Maternal care for abnormalities of the fetal heart rate or rhythm, third trimester, not applicable or unspecified (principal); Z3A.39 39 weeks gestation of pregnancy
CPT/HCPCS: 36415; 59025; 76815; 76819; 85049

== ENCOUNTER 2024-04-10 12:40 | Inpatient (IN) | payer BC, SELFPAY ==
[2024-04-10] VITALS (14 sets, daily range): BP systolic 102–191; BP diastolic 58–172; PULSE 61–131; RESP 12–18; TEMP 36.6–37.2; O2SAT 99–100; BMI 7303.6
[2024-04-10 13:38] LABS: Basophils Percent Auto 0.4 % (0.2-1.2); Eosinophils Percent Auto 0.4 % (0-4.4); Hematocrit 36.8 % (37.0-47.0); Hemoglobin 12.1 g/dL (12.0-15.0); Immature Granulocyte Absolute 0.02 K/mm3 (0.00-0.031); Immature Granulocyte Percent A 0.4 % (0-0.5); Immature Platelet Fraction Pct 17.3 % (0.9-11.2); Lymphocytes Absolute Auto 1.29 K/mm3 (0.9-3.2); Lymphocytes Percent Auto 25.4 % (18.3-44.2); Mean Corpuscular HGB Conc 32.9 g/dl (32-36); Mean Corpuscular Hemoglobin 27.8 pg (26-34); Mean Corpuscular Volume 84.4 fl (80-100); Mean Platelet Volume 13.3 fl (7.4-10.4); Monocytes Absolute Auto 0.4 K/mm3 (0.1-0.6); Monocytes Percent Auto 8.5 % (2.6-8.5); Neutrophils Absolute Auto 3.3 K/mm3 (1.3-6.7); Neutrophils Percent Auto 64.9 % (45.5-73.1); Platelet Count Result 114 k/mm3 (150-375); Red Blood Count 4.36 M/mm3 (4.2-5.4); Red Cell Distribution Width 13.2 % (11.5-14.5); White Blood Count 5.1 K/mm3 (4.5-10.0)
[2024-04-10 14:31] LABS: HIV 1/2 Ab P24 Ag Result Negative (Negative)
--- NOTE | 2024-04-10 14:32 | PM.IMHP ---
H&P: HPI History of Present Illness Date/Time: 04/10/24 14:32 Chief Complaint: Contractions Narrative: She presented to L and D in active labor. Ctx regular since 0400. She was completely dilated when arrived on L and D. PNC significant late gestational thrombocytopenia. Lowest platelet level 106. This occurred with last . for h/o HSV, she is on Valtrex suppression, no symptoms or lesions. GBS neg. Review of Systems Review of Systems: All systems reviewed & are unremarkable except as noted in HPI and below Constitutional: Constitutional: Reports no additional constitutional complaints and Denies headache(s) Eyes: Eyes: Denies spots in vision ENT: Reports system reviewed and no additional complaints, except as documented and Denies headache(s) Cardiovascular: Cardiovascular: Denies chest pain and Denies dyspnea Respiratory: Respiratory: Denies dyspnea Gastrointestinal: Gastrointestinal: Reports no additional gastrointestinal complaints Genitourinary: Genitourinary: Reports amenorrhea Musculoskeletal: Musculoskeletal: Reports no additional musculoskeletal complaints Integumentary/Breasts: Skin/Breast: Denies breast mass and Denies rash Neurologic: Denies headache(s) Psychiatric: Psychiatric: Reports no additional psychiatric complaints [facility] Past Medical History Medical History Gestational hypertension HSV-1 (herpes simplex virus 1) infection UTI (urinary tract infection) Surgical History Surgical History H/O hand surgery Family History Family History Mother Hypertension Grandparent Family history of malignant neoplasm of breast, Onset Age: 53 Family history of malignant neoplasm of ovary, Onset Age: 53 Social History Social History Smoking status: Never smoker Second hand tobacco smoke exposure: No Alcohol intake: former Substance use: never Substance use type: marijuana Other substance usage details: marijuana socially Last use: 06/22/2023 Do You Feel Safe in your Home?: Yes Lack of Transportation: No Lack of Food: Never True Current Housing: I Have Housing Concerned About Future Housing: No Difficulty Paying Gas/Electric Bills: No Difficulty Paying for Meds: No Currently Unemployed: No Education: Trade/Vocational Certificate Difficulty w/ Childcare or Family Care: No Living arrangements: with family Spiritual care concerns: No Meds Home Medications and Allergies Home Medications Medication Instructions Recorded Confirmed Type vits no.126-ferrous fum 1 tablet PO DAILY 08/29/23 04/09/24 History 28 mg iron-folic acid 800 mcg tablet (Classic ) valacyclovir 500 mg tablet 500 mg PO DAILY #90 tabs 08/29/23 04/09/24 Rx ferrous sulfate 325 mg (65 mg 325 mg PO BID 01/22/24 04/09/24 History iron) tablet ([employer]) Allergies Allergy/AdvReac Type Severity Reaction Status Date / Time No Known Allergies Allergy Verified 04/09/24 10:54 Vital Signs Vital Signs - 24 hr 04/10/24 14:30 04/10/24 14:32 04/10/24 13:45 Pulse Rate 67 70 Blood Pressure 119/93 H 108/83 Oxygen Delivery Room Air Exam Const: General: no acute distress Eyes: General: appearance normal, both eyes and all related structures Resp: Effort & Inspection: normal respiratory effort Cardio: Rate: regular rate GI: Other: Gravid no fundal tenderness no right upper quadrant pain Skin: General skin exam: no rashes or lesions noted Neuro: Cognition (Neuro): normal cognition Extrem: General: normal to inspection Psych: Mental Status: mental status grossly normal H&P: Results Labs Labs: Short CBC 04/10/24 Range/Units 13:29 WBC 5.1 (4.5-10.0) K/mm3 Hgb 12.1 (12.0-1
--- NOTE | 2024-04-10 14:35 | PM.OBPRVD ---
OB - Vaginal Delivery Note Procedure Delivery date: 04/10/24 Events: Other (Thrombocytopenia) Induction method: None Delivery augmentation: Rupture of Membranes Delivery monitor: External FHT Route of delivery: Episiotomy description: None Laceration Description: None Quantitative Blood Loss (ml): 200 Anesthesia type: None Disposition: Floor Complications: No immediate complications Narrative: She arrived on L and D, complete. AROM performed and cervix retracted to 9 cm/0 station. She shortly progressed to complete. She delivered a male . Delivery significant for mild shoulder dystocial relieved with Karyn and few seconds of suprapubic pressure. Terminal meconium noted. placed on maternal abdomen and cord doubly clamped and cut and taken to warmer. Placenta delivered spontaneously and intact. No lacerations. [place] Baby Date of : 04/10/24 Time of : 14:23 Weeks of gestation at delivery: 40 gender: Male Weight (pounds): 8 Weight (ounces): 4 presentation: vertex Placenta delivery description: Spontaneous Cord Vessel Description: 3 Vessels and Clamped/Cut score one minute: 8 score five minutes: 9
[2024-04-10] MEDS: OXYTOCIN 10 UNITS/ML VIAL IM (14:40)
[2024-04-10] MEDS: DOCUSATE SODIUM 100 MG CAPSULE PO (15:37)
[2024-04-10] MEDS: IBUPROFEN 600 MG TABLET PO ×2 (15:37→21:40)
[2024-04-10] MEDS: BENZOCAINE 20% AER SPR (*SP) 56 GM CAN 1 SPRAY TOPICAL (16:27)
[2024-04-10] MEDS: WITCH HAZEL 40 PADS 1 PAD TOPICAL (16:27)
--- NOTE | 2024-04-10 16:47 | OBPPTRN ---
Patient transferred to post room #282 via wheelchair. Support person present. Oriented to unit, room, information board, rooming in, admission packet and security measures. Patient verbalizes understanding.
[2024-04-10 17:02] LABS: Rapid Plasma Reagin Non-Reactive (NonReactive)
[2024-04-10] MEDS: ACETAMINOPHEN 325 MG TABLET 650 MG PO (19:12)
[2024-04-11] MEDS: ACETAMINOPHEN 325 MG TABLET 650 MG PO (01:22)
[2024-04-11] MEDS: IBUPROFEN 600 MG TABLET PO ×2 (03:41→06:55)
[2024-04-11 05:08] LABS: Hematocrit 32.8 % (37.0-47.0); Hemoglobin 10.9 g/dL (12.0-15.0)
[2024-04-11 06:55] VITALS: BP 116/77; PULSE 65; RESP 16; TEMP 36.4
[2024-04-11] MEDS: MULTIVIT/MIN/PREN/FOL AC/IRON TABLET 1 TAB PO (06:55)
--- NOTE | 2024-04-11 10:16 | PM.OBPNVD ---
OB - PN: Subj Subjective Date/time seen: 04/11/24 10:10 Narrative: PPD#1 Teena reports doing well today. 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 Her pain is controlled. She is tolerating regular diet, voiding, passing gas, and ambulating without issues. She is breast feeding. She would like to go home today. OB - PN: Obj Data Labs 04/11/24 03:38 Labs: Laboratory Results - last 24 hr 04/10/24 04/11/24 13:29 03:38 WBC 5.1 RBC 4.36 Hgb 12.1 10.9 L Hct 36.8 L 32.8 L MCV 84.4 MCH 27.8 MCHC 32.9 RDW 13.2 Plt Count 114 L MPV 13.3 H Immature Gran % (Auto) 0.4 Neut % (Auto) 64.9 Lymph % (Auto) 25.4 [place] % (Auto) 8.5 Eos % (Auto) 0.4 Baso % (Auto) 0.4 Lymph # (Auto) 1.29 [place] # (Auto) 0.4 Eos # (Auto) 0.0 Baso # (Auto) 0.0 Abs Immat Gran (auto) 0.02 Absolute Neuts (auto) 3.3 Absolute Nucleated RBC 0.000 Nucleated RBC % 0.0 % Immature Plt Fraction 17.3 H RPR Non-reactive HIV 1&2 Ab/P24 Ag 4thGn Negative Blood Type O Positive Antibody Screen Negative OB - PN A/P Assessment and Plan (1) Normal vaginal delivery: Code(s): O80 - Encounter for full-term uncomplicated delivery Status: Acute (2) Low platelet count: Code(s): D69.6 - Thrombocytopenia, unspecified Status: Acute Plan day: 1 Plan: routine care Comments: - Pelvic rest; take meds as prescribed - ER return precautions: fever, n/v/abd pain, bleeding, HTN Time Spent With Patient Time: Total time spent is greater than 50% in coordination of care (as documented) at patient's floor/unit and/or counseling patient: Review of Systems Constitutional: Constitutional: Denies chills, Denies fever(s) and Denies headache(s) Eyes: Eyes: Denies change in vision ENT: Denies dizziness and Denies headache(s) Cardiovascular: Cardiovascular: Denies chest pain, Denies palpitations and Denies dyspnea Respiratory: Respiratory: Denies cough and Denies dyspnea Gastrointestinal: Gastrointestinal: Denies nausea and Denies vomiting Neurologic: Denies dizziness and Denies headache(s) Endocrine: Endocrine: Denies palpitations Exam Const: General: cooperative, comfortable and no acute distress Orientation/consciousness: patient oriented x3 Resp: Effort & Inspection: normal respiratory effort Auscultation: clear to auscultation bilaterally Cardio: Rate: regular rate GI: Inspection: non-distended GI Palp: No abdominal tenderness and Yes Soft to palpation Auscultation: normal bowel sounds : Other: fundus firm Skin: General skin exam: normal color Neuro: General: patient oriented x3 Extrem: General: normal to inspection Psych: Appearance: grossly normal Affect: normal affect Attitude: cooperative
--- NOTE | 2024-04-11 10:17 | PM.OBDSVD ---
DS: Admitting Diagnosis Discharge Date 04/11/24 Admitting Diagnosis Active labor at term DS: Discharge Diagnosis Discharge Diagnosis (1) Normal vaginal delivery: Code(s): O80 - Encounter for full-term uncomplicated delivery Status: Acute OB - DS: Summary OB Procedures : Ultrasound OB Procedures Intrapartum: Spontaneous Vag Delivery OB Procedures: : None Peripartum Data Laceration Description: None Episiotomy description: None complications: none 1: Gender: Male Disposition of : home Status at Discharge Functional status at discharge: independent ambulation Overall status at discharge: patient is back to baseline Time Spent with Patient Time attestation: Total time spent providing and/or coordinating discharge services: Time spent: Less than 30 minutes Exam Const: General: cooperative, comfortable and no acute distress Orientation/consciousness: patient oriented x3 Resp: Effort & Inspection: normal respiratory effort Auscultation: clear to auscultation bilaterally Cardio: Rate: regular rate GI: Inspection: non-distended GI Palp: No abdominal tenderness and Yes Soft to palpation Auscultation: normal bowel sounds : Other: fundus firm Skin: General skin exam: normal color Neuro: General: patient oriented x3 Extrem: General: normal to inspection Psych: Appearance: grossly normal Affect: normal affect Attitude: cooperative DS: Data Data Completed and Pending Labs on day of discharge: Labs from last 24 hours 04/11/24 04/10/24 03:38 13:29 WBC 5.1 RBC 4.36 Hgb 10.9 L 12.1 Hct 32.8 L 36.8 L MCV 84.4 MCH 27.8 MCHC 32.9 RDW 13.2 Plt Count 114 L MPV 13.3 H Immature Gran % (Auto) 0.4 Neut % (Auto) 64.9 Lymph % (Auto) 25.4 [place] % (Auto) 8.5 Eos % (Auto) 0.4 Baso % (Auto) 0.4 Lymph # (Auto) 1.29 [place] # (Auto) 0.4 Eos # (Auto) 0.0 Baso # (Auto) 0.0 Abs Immat Gran (auto) 0.02 Absolute Neuts (auto) 3.3 Absolute Nucleated RBC 0.000 Nucleated RBC % 0.0 % Immature Plt Fraction 17.3 H RPR Non-reactive HIV 1&2 Ab/P24 Ag 4thGn Negative Blood Type O Positive Antibody Screen Negative Discharge Plan Discharge Attending physician on discharge: Ricky Carreon Discharging Clinician: Jessica Paris Anticipated Discharge Date/Time: 04/11/24 15:00 Patient Disposition: Home, Self-Care Activity: pelvic rest Diet: regular Discharge Instructions: Education: Mom and Baby Guide Given to: Mother Follow-Up: Call your delivering provider's office for an appointment to be seen in: Call and make an appointment Mom and baby should come to the [facility] for the follow-up appointment. Appointment Date/Time: April 13, 2024 at 8:00 am What to expect at your follow-up visit: Physical Assessment Call [phone] if you are unable to keep your appointment time. BREAST CARE: * Wear a snug supportive bra. * For engorgement discomfort: Breast Feeding: * Apply warm moist washcloths * Express milk as needed to relieve engorgement * Wear loose clothing Bottle Feeding: * May apply ice packs * For sore nipples: * Identify correct latch-on * Apply warm moist washcloths before and after nursing * Air dry nipples after nursing * May apply Lansinoh cream to nipples EPISIOTOMY/PERINEAL CARE: * Until bleeding stops, use your michael bottle after urinating * Change your pad frequently throughout the day * You may take sitz baths several times a day (fill your bathtub with warm water and soak for 20 minutes.) Do NOT bathe in the water * No tub baths until seen by your physician - You may shower ACTIVITY: * Rest as much as possible. * Do not exercise or lift anything heavier than your baby (such as laundry or other children.) * Avoid stairs or driving
[2024-04-14 10:25] VITALS: BP 133/88; PULSE 79; RESP 18; TEMP 37; O2SAT 100
== END 2024-04-11 16:00 | disposition home or self-care (01) | DRG 806 ==
LOC: ANHLDR 13:18 → ANHOB2 17:03
PROVIDERS: Admitting Provider Obstetrics & Gynecology; Visit Provider Obstetrics & Gynecology
DX: O99.12 Other diseases of the blood and blood-forming organs and certain disorders involving the immune mechanism complicating childbirth (principal); O98.32 Other infections with a predominantly sexual mode of transmission complicating childbirth; Z37.0 Single live birth; Z3A.40 40 weeks gestation of pregnancy; D69.6 Thrombocytopenia, unspecified; A60.09 Herpesviral infection of other urogenital tract; O66.0 Obstructed labor due to shoulder dystocia; O77.0 Labor and delivery complicated by meconium in amniotic fluid
CPT/HCPCS: 36415; 85014; 85018; 85025; 85055; 86592; 86703; 86850; 86900; 86901; A9270; G0432; J2590

== ENCOUNTER 2024-10-07 10:09 | Outpatient (CLI) | payer BC, SELFPAY ==
--- NOTE | 2024-10-07 11:30 | NEURO_ITS ---
Impression: # Complains of numbness of hands. ? # Left sensory Carpal Tunnel Syndrome. ? # No ulnar neuropathy. ? # Normal needle/EMG exam. Nerve Conduction Studies Anti Sensory Summary Table ?Stim Site NR Peak (ms) P-T Amp (?V) Site1 Site2 Delta-P (ms) Dist (cm) Juan (m/s) Left Median Anti Sensory (2-3nd Digit) Wrist ? 3.8 36.8 Wrist 2-3nd Digit 3.8 14.0 37 Wrist ? 3.7 26.5 Wrist 2-3nd Digit 3.8 14.0 37 Right Median Anti Sensory (2-3nd Digit) Wrist ? 2.9 13.9 Wrist 2-3nd Digit 2.9 14.0 48 Wrist ? 3.6 10.5 Wrist 2-3nd Digit 2.9 14.0 48 Left Radial Anti Sensory (Base 1st Digit) Wrist ? 1.6 41.9 Wrist Base 1st Digit 1.6 0.0 Right Radial Anti Sensory (Base 1st Digit) Wrist ? 2.2 24.1 Wrist Base 1st Digit 2.2 0.0 Left Ulnar Anti Sensory (5th Digit) Wrist ? 2.7 51.7 Wrist 5th Digit 2.7 14.0 52 Right Ulnar Anti Sensory (5th Digit) Wrist ? 2.4 52.9 Wrist 5th Digit 2.4 14.0 58 Motor Summary Table ?Stim Site NR Onset (ms) O-P Amp (mV) Site1 Site2 Delta-0 (ms) Dist (cm) Juan (m/s) Left Median Motor (Abd Poll Brev) Wrist ? 3.0 3.7 Elbow Wrist 4.7 28.0 60 Elbow ? 7.7 6.6 Right Median Motor (Abd Poll Brev) Wrist ? 2.7 3.3 Elbow Wrist 4.9 27.0 55 Elbow ? 7.6 2.8 Left Ulnar Motor (Abd Dig Minimi) Wrist ? 2.4 7.5 A Elbow Wrist 4.6 30.0 65 A Elbow ? 7.0 6.1 Right Ulnar Motor (Abd Dig Minimi) Wrist ? 2.3 5.3 A Elbow Wrist 4.8 28.0 58 A Elbow ? 7.1 4.6 F Wave Studies ?NR F-Lat (ms) L-R F-Lat (ms) Left Median (Mrkrs) (Abd Poll Brev) ? 28.77 1.24 Right Median (Mrkrs) (Abd Poll Brev) ? 27.53 1.24 Left Ulnar (Mrkrs) (Abd Dig Min) ? 26.11 0.00 Right Ulnar (Mrkrs) (Abd Dig Min) ? 26.11 0.00 EMG ?Side Muscle Nerve Root Ins Act Fibs Amp Dur Recrt Comment Right 1stDorInt Ulnar C8-T1 Nml Nml Nml Nml Nml Right Ext Indicis Radial (Post Int) C7-8 Nml Nml Nml Nml Nml Right Ext Digitorum Radial (Post Int) C7-8 Nml Nml Nml Nml Nml Right BrachioRad Radial C5-6 Nml Nml Nml Nml Nml Right PronatorTeres Median C6-7 Nml Nml Nml Nml Nml Right Abd Poll Brev Median C8-T1 Nml Nml Nml Nml Nml Right ABD Dig Min Ulnar C8-T1 Nml Nml Nml Nml Nml Left 1stDorInt Ulnar C8-T1 Nml Nml Nml Nml Nml Left Ext Indicis Radial (Post Int) C7-8 Nml Nml Nml Nml Nml Left Ext Digitorum Radial (Post Int) C7-8 Nml Nml Nml Nml Nml Left BrachioRad Radial C5-6 Nml Nml Nml Nml Nml Left PronatorTeres Median C6-7 Nml Nml Nml Nml Nml Left Abd Poll Brev Median C8-T1 Nml Nml Nml Nml Nml Left ABD Dig Min Ulnar C8-T1 Nml Nml Nml Nml Nml MTDD
== END 2024-10-07 10:10 | disposition home or self-care (01) ==
PROVIDERS: Visit Provider Physician Assistant Surgical
DX: G56.03 Carpal tunnel syndrome, bilateral upper limbs (principal)
CPT/HCPCS: 95886; 95911

== ENCOUNTER 2024-10-20 15:58 | Emergency (ER) | payer BC, SELFPAY ==
--- NOTE | ~2024-10-20 | CT_ITS ---
Clinical indication:Abnormal imaging COMPARISON:None TECHNIQUE: Multiple contiguous axial images of the chest were performed without the administration of intravenous contrast. FINDINGS: LUNG: Scattered part solid nodules detected bilaterally. The largest on the right is located within the right middle lobe measuring 12 x 12 x 17 mm. The largest on the left is located within the left upper lobe measuring 8.2 x 11.3 x 13 mm. No pleural effusion is present. MEDIASTINUM:No mediastinal lymphadenopathy is appreciated HEART:The heart is of normal size, without pericardial effusion SOFT TISSUES OF THE CHEST: Unremarkable BONES OF THE CHEST: Unremarkable VISUALIZED PORTION OF THE UPPER ABDOMEN: Unremarkable IMPRESSION: Scattered part solid pulmonary nodules, which may be infectious versus inflammatory in origin. As this patient is less than 35 years old, Fleischner's criteria do not apply. Short-term follow-up (3-6 months) is recommended to confirm resolution. Reviewed, dictated and finalized at location [facility]. [facility] IMPRESSION: Scattered part solid pulmonary nodules, which may be infectious versus inflamma tory in origin. As this patient is less than 35 years old, Fleischner's criteria do not apply. Short-term follow-up (3-6 months) is recommended to confirm resolution.
--- NOTE | ~2024-10-20 | CT_ITS ---
CLINICAL INDICATION: Emesis and diarrhea COMPARISON: None. TECHNIQUE: Multiple contiguous axial images of the abdomen and pelvis were performed following the ad ministration of with 100 mL Omnipaque-350 intravenous contrast The dose-length product (DLP) was 182.88 mGy-cm. Automated exposure control and iterative reconstruction technique were employed. FINDINGS/OBSERVATIONS: Visualized lower thorax: Indeterminate multilobulated soft tissue attenuation nodule within the right middle lobe measuring 9. 8 x 10.6 x 16 mm. Scattered groundglass opacification detected within the remainder of the right midd le lobe and along the medial margin of the right lower lobe, possibly infectious in origin. Remainder of the bilateral lower lobes are unremarkable. The heart is of normal size, without pericardial effusion. Small hiatal hernia is present. Liver: The liver is borderline enlarged measuring 19 cm in longitudinal dimension. Gallbladder and biliary system: The gallbladder is only minimally distended, and otherwise unremarkable. Pancreas: The pancreas enhances homogeneously without ductal dilatation. Spleen: The spleen enhances homogeneously and is not enlarged measuring 6 cm in longitudinal dimension. Kidneys: The bilateral kidneys enhance symmetrically without hydronephrosis or renal calculi. Adrenal glands: Unremarkable. Gastrointestinal tract: Fecal stasis within the rectum. Appendix: The air-filled appendix is of normal caliber (axial series, images 123 through 126). 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 These findings are consistent with pelvic congestion syndrome for which clinical correlation i s needed. Lymph nodes: No pathologically enlarged or morphologically suspicious lymph nodes within the retroperitoneum or at the root of the mesentery. Pelvic structures: The bladder is decompressed and otherwise unremarkable. The uterus is anteverted and anteflexed, and demonstrates multiple varices but is otherwise unremarka ble. Body wall and musculoskeletal: No significant degenerative disease within the lower thoracic or lumbosacral spine. IMPRESSION: Findings within the right middle lobe which may be infectious in origin, for which noncontrast enhanc ed CT examination of the chest is recommended for further evaluation. Additional findings suggesting pelvic congestion syndrome for which clinical correlation is needed. No additional pathology is appreciated. Reviewed, dictated and finalized at location A. [facility] [employer] OPER[employer] IMPRESSION: Findings within the right middle lobe which may be infectious in origin, for wh ich noncontrast enhanced CT examination of the chest is recommended for further evaluation. Additional findings suggesting pelvic congestion syndrome for which clinical co rrelation is needed. No additional pathology is appreciated.
[2024-10-20 16:50] VITALS: BP 138/49; PULSE 54; TEMP 36.6; O2SAT 100
[2024-10-20 16:52] LABS: Basophils Percent Auto 0.1 % (0.2-1.2); Hematocrit 39.3 % (37.0-47.0); Hemoglobin 13.1 g/dL (12.0-15.0); Immature Granulocyte Absolute 0.02 K/mm3 (0.00-0.031); Immature Granulocyte Percent A 0.3 % (0-0.5); Lymphocytes Absolute Auto 0.54 K/mm3 (0.9-3.2); Lymphocytes Percent Auto 6.9 % (18.3-44.2); Mean Corpuscular HGB Conc 33.3 g/dl (32-36); Mean Corpuscular Hemoglobin 27.3 pg (26-34); Mean Corpuscular Volume 81.9 fl (80-100); Mean Platelet Volume 10.8 fl (7.4-10.4); Monocytes Absolute Auto 0.2 K/mm3 (0.1-0.6); Monocytes Percent Auto 2.2 % (2.6-8.5); Neutrophils Absolute Auto 7.1 K/mm3 (1.3-6.7); Neutrophils Percent Auto 90.5 % (45.5-73.1); Platelet Count Result 203 k/mm3 (150-375); Red Cell Distribution Width 12.8 % (11.5-14.5); White Blood Count 7.8 K/mm3 (4.5-10.0)
[2024-10-20 17:02] LABS: Alanine Aminotransferase 22 U/L (6-35); Albumin Level 4.8 g/dL (3.5-5.1); Alkaline Phosphatase 96 U/L (38-126); Anion Gap 12 mmol/L (4-12); Aspartate Amino Transferase 33 U/L (14-36); Blood Urea Nitrogen 16 mg/dL (7-17); Calcium 9.6 mg/dL (8.4-10.2); Carbon Dioxide 20 mmol/L (22-30); Chloride 105 mmol/L (98-107); Estimated CRCL calculation 83 ml/min; Estimated Glomerular Filt Rate > 60; Glucose 122 mg/dL (65-110); Lipase 34 U/L (23-300); Sodium 137 mmol/L (137-145)
[2024-10-20 17:12] LABS: Giant Platelets Present; Large Platelets Present; Platelet Estimate Adequate (Adequate)
[2024-10-20 17:13] LABS: Hypochromasia 1+; Schistocytes None Seen
--- NOTE | 2024-10-20 17:35 | PC.NURSE ---
Pt is currently attempting to provide a urine sample, previous attempts unsuccessful - pt states she has is dehydrated and unable to keep anything down. Pt in restroom for attempt. Declines straight cath at this time.
[2024-10-20 18:13] LABS: BEDSIDEPREGUCG Negative (Negative)
--- NOTE | 2024-10-20 18:13 | ED_ITS ---
HPI - Nausea/Vomiting/Diarrhea General Chief complaint: Nausea/Vomiting/Diarrhea <Adrianne Medina MD - Last Filed: 10/20/24 23:41> Stated complaint: vomiting since 0600 <Adrianne Medina MD - Last Filed: 10/20/24 23:41> Time Seen by Provider: 10/20/24 17:30 <Adrianne Medina MD - Last Filed: 10/20/24 23:41> History of Present Illness HPI Narrative: 29-year-old female presenting with vomiting. States that she started to feel unwell couple of days ago. Today she woke up down and has been unable to stop vomiting. Complains of diffuse abdominal pain. Tried an [id number] anti emetic which did not help. <Adrianne Medina MD - Last Filed: 10/20/24 23:41> Related Data Home medications: Home Medications ?Medication ?Instructions ?Recorded ?Confirmed ?Last Taken ?Type vits no.126-ferrous fum 1 tablet PO DAILY 08/29/23 04/09/24 1 Day Ago History 28 mg iron-folic acid 800 mcg ~03/12/24 tablet (Classic ) ferrous sulfate 325 mg (65 mg 325 mg PO BID 01/22/24 04/09/24 1 Day Ago History iron) tablet (America-Time) ~03/12/24 <Adrianne Medina MD - Last Filed: 10/20/24 23:41> Allergies/Adverse reactions: Allergies Allergy/AdvReac Type Severity Reaction Status Date / Time No Known Allergies Allergy Verified 10/20/24 15:58 <Adrianne Medina MD - Last Filed: 10/20/24 23:41> Review of Systems 2 Review of Systems: All systems reviewed & are unremarkable except as noted in HPI and below <Adrianne Medina MD - Last Filed: 10/20/24 23:41> [facility] Past Medical History Medical History: Medical History UTI (urinary tract infection) Gestational hypertension HSV-1 (herpes simplex virus 1) infection <Adrianne Medina MD - Last Filed: 10/20/24 23:41> Surgical History Surgical History: Surgical History H/O hand surgery <Adrianne Medina MD - Last Filed: 10/20/24 23:41> Family History Family History: Family History Mother Hypertension Grandparent Family history of malignant neoplasm of breast, Onset Age: 53 Family history of malignant neoplasm of ovary, Onset Age: 53 <Adrianne Medina MD - Last Filed: 10/20/24 23:41> Social History Social History: Social History Smoking status: Never smoker Second hand tobacco smoke exposure: No Alcohol intake: former Substance use: never Substance use type: marijuana Other substance usage details: marijuana socially Last use: 06/22/2023 Do You Feel Safe in your Home?: Yes Lack of Transportation: No Lack of Food: Never True Current Housing: I Have Housing Concerned About Future Housing: No Difficulty Paying Gas/Electric Bills: No Difficulty Paying for Meds: No Currently Unemployed: No Education: Trade/Vocational Certificate Difficulty w/ Childcare or Family Care: No Living arrangements: with family Spiritual care concerns: No <Adrianne Medina MD - Last Filed: 10/20/24 23:41> Exam 2 Narrative: GENERAL: Uncomfortable appearing, pleasant and cooperative HEAD: Normocephalic, atraumatic. EYES: PERRLA and EOMI. ENT: grossly unremarkable NECK: Supple. CHEST: Clear to auscultation. No respiratory distress. HEART: Regular rate and rhythm ABDOMEN: Soft, diffusely tender, no guarding rebound EXTREMITIES: Normal range of motion SKIN: Warm, dry, no rash. NEURO: Alert and oriented x3. PSYCH: Normal mood and affect. <Adrianne Medina MD - Last Filed: 10/20/24 23:41> Course Course Emergency Course: Patient signed out to myself pending CT chest which reveals scattered part solid pulmonary nodules which may repeat flex infectious versus inflammatory in origin with recommendations for short-term follow-up in 3-6 months. Patient was updated on results. Augmentin has been sent to the pharmacy. She was given PCP follow-up and strict ED return precautions. All questions answered. <Ella Phillips PA-C - Last Filed: 10/20/24 22:54> Vital Signs Vital signs: Vital Signs Temperature 97.8 F 10/20/24 16:50 Pulse Rate 54 L 10/20/24 16:50 Blood Pressure 138/49 L 10/20/24 16:50 Pulse Oximetry 100 10/20/24 16:50 Temperature 97.8 F 10/20/24 23:09 Pulse Rate 77 10/20/24 23:09 Respiratory Rate 18 10/20/24 23:09 Blood Pressure 138/79 10/20/24 23:09 Pulse Oximetry 99 10/20/24 23:09 <Adrianne Medina MD - Last Filed: 10/20/24 23:41> Vital Signs Temperature 97.8 F 10/20/24 16:50 Pulse Rate 54 L 10/20/24 16:50 Blood Pressure 138/49 L 10/20/24 16:50 Pulse Oximetry 100 10/20/24 16:50 Temperature 97.8 F 10/20/24 23:09 Pulse Rate 77 10/20/24 23:09 Respiratory Rate 18 10/20/24 23:09 Blood Pressure 138/79 10/20/24 23:09 Pulse Oximetry 99 10/20/24 23:09 <Ella Phillips PA-C - Last Filed: 10/20/24 22:54> MDM - Nausea/Vomiting/Diarrhea MDM Narrative Medical decision making narrative: 29-year-old female presenting with nausea and vomiting and belly pain. Vitals are stable. Exam remarkable for the above. Blood work without significant abnormalities. CT abdomen pelvis shows no acute intra-abdominal abnormalities. They are seeing a nodule in her right long concerning for infection. They recommend CT non-con which has been ordered. Patient given Augmentin for pneumonia. She tells me that she has actually been coughing for the last few weeks but she has been too busy to get it checked out. Patient does feel much better after receiving Reglan. She is tolerating p.o. intake at this time. Patient signed out pending CT chest with plan for discharge on antibiotics and close PCP follow-up. <Adrianne Medina MD - Last Filed: 10/20/24 23:41> 29-year-old female presenting with nausea and vomiting and belly pain. Vitals are stable. Exam remarkable for the above. Blood work without significant abnormalities. CT abdomen pelvis shows no acute intra-abdominal abnormalities. They are seeing a nodule in her right long concerning for infection. They recommend CT non-con which has been ordered. Patient given Augmentin for pneumonia. She tells me that she has actually been coughing for the last few weeks but she has been too busy to get it checked out. Patient does feel much better after receiving Reglan. She is tolerating p.o. intake at this time. Patient signed out pending CT chest with plan for discharge on antibiotics and close PCP follow-up. <Ella Phillips PA-C - Last Filed: 10/20/24 22:54> Differential Diagnosis Differential diagnosis: Likely gastroenteritis, dehydration and other (nausea/vomiting, UTI) < Adrianne Medina MD - Last Filed: 10/20/24 23:41> Medical Records Attestation: I reviewed the patient's medical records. <Adrianne Medina MD - Last Filed: 10/20/24 23:41> Lab Data Attestation: I reviewed the patient's lab results. <Adrianne Medina MD - Last Filed: 10/20/24 23:41> Result diagrams: 10/20/24 16:46 10/20/24 16:46 <Adrianne Medina MD - Last Filed: 10/20/24 23:41> Labs: Lab Results 10/20/24 10/20/24 10/20/24 Range/Units 16:46 18:11 18:13 WBC 7.8 (4.5-10.0) K/mm3 RBC 4.80 (4.2-5.4) M/mm3 Hgb 13.1 (12.0-15.0) g/dL Hct 39.3 (37.0-47.0) % MCV 81.9 (80-100) fl MCH 27.3 (26-34) pg MCHC 33.3 (32-36) g/dl RDW 12.8 (11.5-14.5) % Plt Count 203 D (150-375) k/mm3 MPV 10.8 H (7.4-10.4) fl Immature Gran % (Auto) 0.3 (0-0.5) % Neut % (Auto) 90.5 H (45.5-73.1) % Lymph % (Auto) 6.9 L (18.3-44.2) % [place] % (Auto) 2.2 L (2.6-8.5) % Eos % (Auto) 0.0 (0-4.4) % Baso % (Auto) 0.1 L (0.2-1.2) % Lymph # (Auto) 0.54 L (0.9-3.2) K/mm3 [place] # (Auto) 0.2 (0.1-0.6) K/mm3 Eos # (Auto) 0.0 (0-0.3) K/mm3 Baso # (Auto) 0.0 (0.0-0.1) K/mm3 Abs Immat Gran (auto) 0.02 (0.00-0.031) K/mm3 Absolute Neuts (auto) 7.1 H (1.3-6.7) K/mm3 Absolute Nucleated RBC 0.000 (0.0-0.012) K/mm3 Nucleated RBC % 0.0 (0.0-0.2) % Platelet Estimate Adequate (Adequate) Large Platelets Present Giant Platelets Present Hypochromasia 1+ Schistocytes None seen Sodium 137 (137-145) mmol/L Potassium 4.0 (3.4-5.0) mmol/L Chloride 105 (98-107) mmol/L Carbon Dioxide 20 L (22-30) mmol/L Anion Gap 12 (4-12) mmol/L BUN 16 (7-17) mg/dL Creatinine 0.70 (0.7-1.0) mg/dL Estim Creat Clear Calc 83 ml/min Estimated GFR > 60 (59 - ) Glucose 122 H (65-110) mg/dL Calcium 9.6 (8.4-10.2) mg/dL Total Bilirubin 1.0 (0.2-1.3) mg/dL AST 33 (14-36) U/L ALT 22 (6-35) U/L Alkaline Phosphatase 96 (38-126) U/L Total Protein 8.0 (6.3-8.2) g/dL Albumin 4.8 (3.5-5.1) g/dL Lipase 34 (23-300) U/L Urine Color Dark yellow (Yellow) Urine Appearance Cloudy H (Clear) Urine pH 5.5 (5.0-9.0) Ur Specific [place] 1.035 (1.001-1.035) Urine Protein 1+ H (Negative) mg/dL Urine Glucose (UA) Negative (Negative) mg/dL Urine Ketones 4+ H (Negative) mg/dL Ur Blood (Man) Negative (Negative) Urine Nitrate Negative (Negative) Urine Bilirubin Negative (Negative) Urine Urobilinogen 1.0 (<2.0) mg/dL Leukocyte Esterase Rfl Trace H (Negative) OMEGA/UL Urine RBC 0-2 (0-2) /hpf Urine WBC 0-5 (0-3) /hpf Ur Squamous Epith Cells Moderate (Few) /hpf Urine Bacteria 1+ H /hpf Urine Casts 0-2 POC Urine HCG, Qual Negative (Negative) <Adrianne Medina MD - Last Filed: 10/20/24 23:41> Lab Results 10/20/24 10/20/24 10/20/24 Range/Units 16:46 18:11 18:13 WBC 7.8 (4.5-10.0) K/mm3 RBC 4.80 (4.2-5.4) M/mm3 Hgb 13.1 (12.0-15.0) g/dL Hct 39.3 (37.0-47.0) % MCV 81.9 (80-100) fl MCH 27.3 (26-34) pg MCHC 33.3 (32-36) g/dl RDW 12.8 (11.5-14.5) % Plt Count 203 D (150-375) k/mm3 MPV 10.8 H (7.4-10.4) fl Immature Gran % (Auto) 0.3 (0-0.5) % Neut % (Auto) 90.5 H (45.5-73.1) % Lymph % (Auto) 6.9 L (18.3-44.2) % [place] % (Auto) 2.2 L (2.6-8.5) % Eos % (Auto) 0.0 (0-4.4) % Baso % (Auto) 0.1 L (0.2-1.2) % Lymph # (Auto) 0.54 L (0.9-3.2) K/mm3 [place] # (Auto) 0.2 (0.1-0.6) K/mm3 Eos # (Auto) 0.0 (0-0.3) K/mm3 Baso # (Auto) 0.0 (0.0-0.1) K/mm3 Abs Immat Gran (auto) 0.02 (0.00-0.031) K/mm3 Absolute Neuts (auto) 7.1 H (1.3-6.7) K/mm3 Absolute Nucleated RBC 0.000 (0.0-0.012) K/mm3 Nucleated RBC % 0.0 (0.0-0.2) % Platelet Estimate Adequate (Adequate) Large Platelets Present Giant Platelets Present Hypochromasia 1+ Schistocytes None seen Sodium 137 (137-145) mmol/L Potassium 4.0 (3.4-5.0) mmol/L Chloride 105 (98-107) mmol/L Carbon Dioxide 20 L (22-30) mmol/L Anion Gap 12 (4-12) mmol/L BUN 16 (7-17) mg/dL Creatinine 0.70 (0.7-1.0) mg/dL Estim Creat Clear Calc 83 ml/min Estimated GFR > 60 (59 - ) Glucose 122 H (65-110) mg/dL Calcium 9.6 (8.4-10.2) mg/dL Total Bilirubin 1.0 (0.2-1.3) mg/dL AST 33 (14-36) U/L ALT 22 (6-35) U/L Alkaline Phosphatase 96 (38-126) U/L Total Protein 8.0 (6.3-8.2) g/dL Albumin 4.8 (3.5-5.1) g/dL Lipase 34 (23-300) U/L Urine Color Dark yellow (Yellow) Urine Appearance Cloudy H (Clear) Urine pH 5.5 (5.0-9.0) Ur Specific [place] 1.035 (1.001-1.035) Urine Protein 1+ H (Negative) mg/dL Urine Glucose (UA) Negative (Negative) mg/dL Urine Ketones 4+ H (Negative) mg/dL Ur Blood (Man) Negative (Negative) Urine Nitrate Negative (Negative) Urine Bilirubin Negative (Negative) Urine Urobilinogen 1.0 (<2.0) mg/dL Leukocyte Esterase Rfl Trace H (Negative) OMEGA/UL Urine RBC 0-2 (0-2) /hpf Urine WBC 0-5 (0-3) /hpf Ur Squamous Epith Cells Moderate (Few) /hpf Urine Bacteria 1+ H /hpf Urine Casts 0-2 POC Urine HCG, Qual Negative (Negative) <Ella Phillips PA-C - Last Filed: 10/20/24 22:54> Imaging Data Radiologist's impression: ITS Impressions Abdomen/Pelvis CT 10/20/24 20:18 IMPRESSION: Findings within the right middle lobe which may be infectious in origin, for which noncontrast enhanced CT examination of the chest is recommended for further evaluation. Additional findings suggesting pelvic congestion syndrome for which clinical correlation is needed. No additional pathology is appreciated. <Adrianne Medina MD - Last Filed: 10/20/24 23:41> Critical Care Time Critical Care Time Critical Care Time: No <Adrianne Medina MD - Last Filed: 10/20/24 23:41> Discharge Plan Discharge Clinical Impression: Pulmonary nodule Nausea & vomiting Qualifiers: Vomiting type: unspecified Qualified Code(s): R11.2 - Nausea with vomiting, unspecified Pneumonia Qualifiers: Pneumonia type: due to unspecified organism Laterality: unspecified laterality Lung location: unspecified part of lung Qualified Code(s): J18.9 - Pneumonia, unspecified organism <Adrianne Medina MD - Last Filed: 10/20/24 23:41> Patient Disposition: Home, Self-Care <Adrianne Medina MD - Last Filed: 10/20/24 23:41> Condition: Stable <Adrianne Medina MD - Last Filed: 10/20/24 23:41> Instructions: Antibiotic Form, Acute Nausea and Vomiting (DC), Community Acquired Pneumonia (DC), Pulmonary Nodules (ED) <Adrianne Medina MD - Last Filed: 10/20/24 23:41> Additional Instructions: The CT of your chest shows pulmonary nodules which may be infectious or inflammatory. Follow-up with the primary care provider to have a CT of your chest read done in 3-6 months for further evaluation. Return to the emergency department if you develop any new or worsening symptoms. <Adrianne Medina MD - Last Filed: 10/20/24 23:41> Patient Language: Swedish <Adrianne Medina MD - Last Filed: 10/20/24 23:41> Prescriptions: New amoxicillin-pot clavulanate 875-125 mg tablet 1 tablet PO Q12H Qty: 14 0RF metoclopramide HCl [Reglan] 10 mg tablet 10 mg PO Q6H PRN (Reason: nausea and vomiting) Qty: 14 0RF No Action Classic 28 mg iron- 800 mcg tablet 1 tablet PO DAILY docusate sodium 100 mg Capsule 100 mg PO BID PRN (Reason: Constipation) Qty: 60 0RF ferrous sulfate [America-Time] 325 mg (65 mg iron) tablet 325 mg PO BID valacyclovir 500 mg tablet 500 mg PO DAILY Qty: 90 0RF <Adrianne Medina MD - Last Filed: 10/20/24 23:41> Follow-up/Referrals: Ricky Carreon MD [Physician] - Marisa Chacon DO [Physician] - <Adrianne Medina MD - Last Filed: 10/20/24 23:41>
[2024-10-20] MEDS: ONDANSETRON INJ 4 MG/2 ML VIAL IV PUSH (18:21)
[2024-10-20] MEDS: FAMOTIDINE 20 MG/2 ML VIAL IV PUSH (18:21)
[2024-10-20] MEDS: SODIUM CHLORIDE 0.9% IV 1,000 ML 999 ML IV CONT ×2 (18:21→21:09)
[2024-10-20 18:38] LABS: Add Urine Microscopic? YES; Appearance Urine Cloudy (Clear); Bacteria Urine 1+ /hpf; Bilirubin Urine Negative (Negative); Blood Urine Negative (Negative); Color Urine Dark Yellow (Yellow); Glucose Urine UA Negative (Negative); Ketones Urine 4+ mg/dL (Negative); Leukocyte Esterase Ur Trace LEU/UL (Negative); Nitrate Urine Negative (Negative); Non Pathogenic Casts 0-2; Protein Urine 1+ mg/dL (Negative); RBC Urine 0-2 /hpf (0-2); Specific Grav Ur 1.035 (1.001-1.035); Squamous Epithelial Cell Urine Moderate /hpf (Few); WBC Urine 0-5 /hpf (0-3); pH Urine 5.5 (5.0-9.0)
[2024-10-20 19:35] VITALS: BP 137/74; PULSE 62; RESP 12; TEMP 36.6; O2SAT 97
[2024-10-20] MEDS: METOCLOPRAMIDE HCL INJ 10 MG/2 ML VIAL IV PUSH (20:02)
[2024-10-20] MEDS: AMOXICILLIN/CLAVULANATE K 875-125 MG TAB 1 TABLET PO (21:09)
[2024-10-20 21:30] VITALS: BP 123/70; PULSE 66; RESP 18; TEMP 36.7; O2SAT 99
[2024-10-20 23:09] VITALS: BP 138/79; PULSE 77; RESP 18; TEMP 36.6; O2SAT 99
== END 2024-10-20 23:10 | disposition home or self-care (01) ==
PROVIDERS: Student in an Organized Health Care Education/Training Program; Emergency Provider Emergency Medicine
DX: J18.9 Pneumonia, unspecified organism (principal); R11.2 Nausea with vomiting, unspecified; Z87.440 Personal history of urinary (tract) infections; R91.1 Solitary pulmonary nodule
CPT/HCPCS: 36415; 71250; 74177; 80053; 81001; 81025; 83690; 85025; 96361; 96374; 96375; 99284; A9270; J2405; J2765; J7030; Q9967

== ENCOUNTER 2025-07-07 10:13 | Emergency (ER) | payer BC, SELFPAY ==
[2025-07-07 10:15] VITALS: BP 123/91; PULSE 99; RESP 20; TEMP 37.5; O2SAT 99
--- NOTE | 2025-07-07 10:58 | ED_ITS ---
HPI - URI/Sore Throat General Chief Complaint: Upper Respiratory Infection Stated Complaint: chest infection/issues Time Seen by Provider: 07/07/25 10:58 Source: patient Mode of arrival: ambulatory Limitations: no limitations History of Present Illness HPI Narrative: 30 yo F presents with cough, chest congestion, sore throat, fatigue for 5 days. Yesterday vomited several times during the night, felt feverish. Hx of pneumonia. No CP or SOB but reports chest alvarado with coughing. Used an AI jeffry to ask about her symptoms and was told she should come to to be seen. All systems reviewed and negative except as noted above. Related Data Allergies Allergy/AdvReac Type Severity Reaction Status Date / Time No Known Allergies Allergy Verified 07/07/25 10:25 [facility] Past Medical History Medical History UTI (urinary tract infection) Gestational hypertension HSV-1 (herpes simplex virus 1) infection Surgical History Surgical History H/O hand surgery Family History Family History Mother Hypertension Grandparent Family history of malignant neoplasm of breast, Onset Age: 53 Family history of malignant neoplasm of ovary, Onset Age: 53 Social History Social History Smoking status: Never smoker Second hand tobacco smoke exposure: No Alcohol intake: former Substance use: never Substance use type: marijuana Other substance usage details: marijuana socially Last use: 06/22/2023 Do You Feel Safe in your Home?: Yes Lack of Transportation: No Lack of Food: Never True Current Housing: I Have Housing Concerned About Future Housing: No Difficulty Paying Gas/Electric Bills: No Difficulty Paying for Meds: No Currently Unemployed: No Education: Trade/Vocational Certificate Difficulty w/ Childcare or Family Care: No Living arrangements: with family Spiritual care concerns: No Comments At time of signature, agree with nursing past medical, surgical, social and family history. There is no relevant family history pertinent to the presenting complaint. Exam Narrative: GENERAL: This is a well-nourished, well-developed patient, in no apparent distress. HEAD: normocephalic, atraumatic. EYES: PERRL. Sclera clear/white. Vision is grossly intact. EARS: External ears normal, auditory canals clear and without drainage, TMs normal without perforation. Hearing grossly intact. NOSE: External nose normal with Clear nasal drainage THROAT: Mucous membranes moist, Erythematous with mild swelling. No exudates. NECK: Neck supple, non-tender without lymphadenopathy, masses or thyromegaly. CARDIOVASCULAR: Regular rate and rhythm without murmurs, gallops, or rubs. RESPIRATORY: decreased to left lower lung field. Breath sounds equal bilaterally. No wheezes, rales, or rhonchi. SKIN: warm, Dry, intact with no suspicious lesions or rash, good texture and turgor. NEURO: awake, alert, and oriented to person, place and time. There were no obvious focal neurologic abnormalities. EXTREMITIES: No joint tenderness, effusion, or edema noted. Course Course Level of Care: Express Care Visit Vital Signs Vital signs: Vital Signs Temperature 37.5 C 07/07/25 10:15 Pulse Rate 07/07/25 10:15 Respiratory Rate 07/07/25 10:15 Blood Pressure 123/91 H 07/07/25 10:15 Pulse Oximetry 99 07/07/25 10:15 Oxygen Delivery Room Air 07/07/25 10:15 Temperature 37.5 C 07/07/25 10:15 Pulse Rate 07/07/25 10:15 Respiratory Rate 07/07/25 10:15 Blood Pressure 123/91 H 07/07/25 10:15 Pulse Oximetry 99 07/07/25 10:15 Oxygen Delivery Room Air 07/07/25 10:15 Reviewed MDM - URI/Sore Throat MDM Narrative Medical decision making narrative: history of pneumonia. Decreased to left lower lung field. No x-ray tech, unable to do chest x-ray. Will prescribe antibiotic as precaution. Patient agrees with plan of care. Differential Diagnosis Differential diagnosis: Likely upper respiratory infection, sinusitis, viral infection, influenza and other ( Pneumonia) Lab Data Labs: Lab Results 07/07/25 Range/Units 10:55 POC Influenza A Ag Negative (Negative) POC Influenza B Ag Negative (Negative) POC SARS CoV-2 Ag Negative (Negative) POC Grp A Strep Screen Negative (Negative) Discharge Plan Discharge Clinical Impression: Pneumonia Patient Disposition: Home Condition: Stable Instructions: Antibiotic Form, Acute Bronchitis (ED) Additional Instructions: Take medications as prescribed. Drink 64 oz of water day. See your primary care physician if symptoms are not improving. Patient Language: Bulgarian Prescriptions: New azithromycin 250 mg tablet See Rx Instructions .ROUTE .COMPLEX Qty: 6 0RF Rx Instructions: For 250 mg dose pack: take 500 mg today (day 1), then 250 mg for 4 days (days 2-5) methylprednisolone [Medrol (Tonio)] 4 mg tablets,dose pack See Rx Instructions PO .COMPLEX Qty: 21 0RF Rx Instructions: orally per package directions No Action valacyclovir 500 mg tablet 500 mg PO DAILY Qty: 90 0RF Follow-up/Referrals: UNKNOWN,DOCTOR [Primary Care Provider] Time of Disposition: 11:07
[2025-07-07 11:00] LABS: EDCOVIDSCREEN Negative (Negative); EDINFLUASCREEN Negative (Negative); EDINFLUBSCREEN Negative (Negative); EDSTREPNEGPOS1 Negative (Negative)
== END 2025-07-07 11:14 | disposition home or self-care (01) ==
PROVIDERS: Emergency Provider Nurse Practitioner Family
DX: J18.9 Pneumonia, unspecified organism (principal); Z20.822 Contact with and (suspected) exposure to COVID-19
CPT/HCPCS: 87081; 87426; 87804; 87880; 99213; G0463